=== PATIENT | female | born 1950 | race African-American/Black ===

== ENCOUNTER 2018-07-14 15:52 | Inpatient (IN) | payer MEDICARE, MEDICAID ==
[~2018-07-14] VITALS: Ht 170.2 cm; Wt 75.8 kg
[~2018-07-14 15:52] MED LIST: BENZ1TAB70 PO; CLON.5 PO; DIPH50 PO; ESCI20TA PO; LURA40 PO
[2018-07-14 18:03] LABS: BASOPHILS % (AUTO) 1.2 % (0.0-2.0); EOSINOPHILS % (AUTO) 1.7 % (1.0-6.0); HEMATOCRIT 41.2 % (36-46); HEMOGLOBIN 13.7 g/dL (12.0-16.0); LYMPHOCYTES # (AUTO) 1.3 K/uL (1.0-4.8); LYMPHOCYTES % (AUTO) 28.8 % (22.0-44.0); MEAN CORPUSCULAR HEMOGLOBIN 32.4 pg (26.0-34.0); MEAN CORPUSCULAR HGB CONC 33.4 G/dL (31.0-37.0); MEAN CORPUSCULAR VOLUME 97 fL (80-100); MONOCYTES # (AUTO) 0.5 K/uL (0.1-1.0); MONOCYTES % (AUTO) 10.7 % (2.0-9.0); NEUTROPHILS # (AUTO) 2.5 K/uL (1.8-7.7); NEUTROPHILS % (AUTO) 57.6 % (40.0-70.0); PLATELET COUNT (AUTO) 236 K/uL (150-450); RED BLOOD CELL COUNT(AUTO) 4.24 MIL/uL (4.00-5.20); RED CELL DISTRIBUTION WIDTH 13.8 % (11.5-14.5)
[2018-07-14 18:16] LABS: ANION GAP 7 mmol/L (8-16); CALCIUM, TOTAL 9.1 mg/dL (8.8-10.5); CARBON DIOXIDE 28 mmol/L (22-29); CHLORIDE 103 mmol/L (98-107); CREATININE 0.84 mg/dL (0.60-1.30); GLOMERULAR FILTR. RATE CALC > 60 mL/min (>60); GLUCOSE,RANDOM 82 mg/dL (70-110); POTASSIUM 4.5 mmol/L (3.5-5.1); SODIUM SERUM 138 mmol/L (136-145); UREA NITROGEN, BLOOD 12 mg/dL (7-18)
[2018-07-14 18:22] LABS: ALANINE AMINOTRANSFERASE 16 U/L (12-78); ALBUMIN 3.4 g/dL (3.4-5.0); ALKALINE PHOSPHATASE 66 U/L (46-116); ASPARTATE AMINOTRANSFERASE 22 U/L (15-37); BILIRUBIN,TOTAL 0.3 mg/dL (0.1-1.0); TOTAL PROTEIN, SERUM 7.3 g/dL (6.4-8.2)
[2018-07-14 19:10] LABS: AMPHET/METH SCREEN,URINE NEGATIVE (NEGATIVE); BARBITURATE SCREEN, URINE NEGATIVE (NEGATIVE); BENZODIAZEPINES SCREEN,URINE NEGATIVE (NEGATIVE); CANNABINOID SCREEN,URINE NEGATIVE (NEGATIVE); COCAINE SCREEN,URINE NEGATIVE (NEGATIVE); METHADONE SCREEN, URINE NEGATIVE (NEGATIVE); OPIATE SCREEN,URINE NEGATIVE (NEGATIVE)
[2018-07-14 19:11] LABS: PHENCYCLIDINE SCREEN,URINE NEGATIVE (NEGATIVE)
[2018-07-14] MEDS ORDERED: IBUP-2070 PO (19:23)
[2018-07-14] MEDS ORDERED: MIRT15 PO (19:23)
[2018-07-14] MEDS ORDERED: OLAN5TAB2 PO (19:23)
[2018-07-14] MEDS ORDERED: OMEP20 PO (19:23)
[2018-07-14] MEDS ORDERED: FLUP10 PO (19:23)
[2018-07-14] MEDS: MIRTAZAPINE 30 MG TABLET PO ONE ×2 (20:12→20:58)
[2018-07-15 00:22] VITALS: BP 135/70
[2018-07-15] MEDS: LORazepam 2 MG TABLET PO PRN (00:53)
[2018-07-15] MEDS ORDERED: ALBUTEROL SULFATE HFA 90 MCG/PUFF 8 GM INHALER IH PRN (07:30)
[2018-07-15] MEDS ORDERED: ACETAMINOPHEN 325 MG TABLET PO PRN (07:30)
[2018-07-15] MEDS ORDERED: PETROLATUM,WHITE 71 GM JELLY TP PRN (07:30)
[2018-07-15] MEDS ORDERED: GuaiFENesin/D-METHORPHAN [SUGAR-FREE] 200-20MG/10 ML SYRUP UDCUP PO PRN (07:30)
[2018-07-15] MEDS ORDERED: DOCUSATE SODIUM 100 MG CAPSULE PO PRN (07:30)
[2018-07-15] MEDS ORDERED: CloNIDine HCL 0.1 MG TABLET PO PRN (07:30)
[2018-07-15] MEDS ORDERED: ONDANSETRON HCL 4 MG TABLET PO PRN (07:30)
[2018-07-15] MEDS ORDERED: NICOTINE 14 MG/24 HOUR PATCH TD PRN (07:30)
[2018-07-15] MEDS ORDERED: IBUPROFEN 400 MG TABLET PO PRN (07:30)
[2018-07-15] MEDS ORDERED: LOPERAMIDE HCL 2 MG CAPSULE PO PRN (07:30)
[2018-07-15 08:14] VITALS: BP 107/76
[2018-07-15] MEDS: FluPHENAZine HCL 5 MG TABLET PO SCH ×2 (10:13→20:51)
[2018-07-15 19:07] VITALS: BP 110/70
[2018-07-15] MEDS: MIRTAZAPINE 15 MG TABLET PO SCH (20:52)
[2018-07-16 07:16] VITALS: BP 123/72
[2018-07-16] MEDS: OMEPRAZOLE 20 MG CAPSULE PO SCH (09:16)
[2018-07-16] MEDS: FluPHENAZine HCL 5 MG TABLET PO SCH ×2 (09:16→20:26)
[2018-07-16 09:24] VITALS: BP 101/60
[2018-07-16 18:57] VITALS: BP 117/79
[2018-07-16] MEDS: MIRTAZAPINE 15 MG TABLET PO SCH (20:26)
[2018-07-16] MEDS: LORazepam 2 MG TABLET PO PRN (20:31)
[2018-07-17 06:30] VITALS: BP 110/72
[2018-07-17] MEDS: OMEPRAZOLE 20 MG CAPSULE PO SCH (09:03)
[2018-07-17] MEDS: FluPHENAZine HCL 5 MG TABLET PO SCH ×2 (09:04→20:34)
[2018-07-17 16:00] VITALS: BP 148/66
[2018-07-17] MEDS: MIRTAZAPINE 15 MG TABLET PO SCH (20:35)
[2018-07-17 21:01] VITALS: BP 140/68
[2018-07-17] MEDS: ZOLPIDEM TARTRATE 10 MG TABLET PO PRN (21:09)
[2018-07-18 06:37] VITALS: BP 107/61
[2018-07-18] MEDS: OMEPRAZOLE 20 MG CAPSULE PO SCH (09:00)
[2018-07-18] MEDS: FluPHENAZine HCL 5 MG TABLET PO SCH ×2 (09:02→20:59)
[2018-07-18 16:55] VITALS: BP 120/69
[2018-07-18] MEDS: MIRTAZAPINE 15 MG TABLET PO SCH (20:59)
[2018-07-18] MEDS: ZOLPIDEM TARTRATE 10 MG TABLET PO PRN (20:59)
[2018-07-19 04:43] VITALS: BP 110/69
[2018-07-19] MEDS: OMEPRAZOLE 20 MG CAPSULE PO SCH (09:00)
[2018-07-19] MEDS: FluPHENAZine HCL 5 MG TABLET PO SCH ×3 (09:15→17:00)
[2018-07-19 17:14] VITALS: BP 122/65
[2018-07-19] MEDS: MIRTAZAPINE 15 MG TABLET PO SCH (20:56)
[2018-07-19] MEDS: ZOLPIDEM TARTRATE 10 MG TABLET PO PRN (20:56)
[2018-07-20 05:55] VITALS: BP 118/78
[2018-07-20 08:00] VITALS: BP 116/74
[2018-07-20] MEDS: OMEPRAZOLE 20 MG CAPSULE PO SCH (08:36)
[2018-07-20] MEDS: FluPHENAZine HCL 5 MG TABLET PO SCH (08:36)
[2018-07-20 08:44] LABS: BASOPHILS % (AUTO) 0.7 % (0.0-2.0); HEMOGLOBIN 13.5 g/dL (12.0-16.0); LYMPHOCYTES # (AUTO) 1.8 K/uL (1.0-4.8); LYMPHOCYTES % (AUTO) 43.1 % (22.0-44.0); MEAN CORPUSCULAR HEMOGLOBIN 32.6 pg (26.0-34.0); MEAN CORPUSCULAR HGB CONC 33.8 G/dL (31.0-37.0); MEAN CORPUSCULAR VOLUME 96 fL (80-100); MONOCYTES # (AUTO) 0.6 K/uL (0.1-1.0); MONOCYTES % (AUTO) 13.5 % (2.0-9.0); NEUTROPHILS # (AUTO) 1.6 K/uL (1.8-7.7); NEUTROPHILS % (AUTO) 37.7 % (40.0-70.0); PLATELET COUNT (AUTO) 238 K/uL (150-450); RED BLOOD CELL COUNT(AUTO) 4.15 MIL/uL (4.00-5.20); RED CELL DISTRIBUTION WIDTH 13.7 % (11.5-14.5)
[2018-07-20 17:22] VITALS: BP 116/76
[2018-07-20] MEDS ORDERED: QUEtiapine FUMARATE 200 MG TABLET PO SCH (21:00)
[2018-07-20] MEDS: MIRTAZAPINE 15 MG TABLET PO SCH (21:10)
[2018-07-20] MEDS: ZOLPIDEM TARTRATE 10 MG TABLET PO PRN (21:22)
[2018-07-21 08:01] VITALS: BP 122/59
[2018-07-21 08:04] VITALS: BP 122/59
[2018-07-21] MEDS: HALOPERIDOL 5 MG TABLET PO PRN (10:26)
[2018-07-21] MEDS: LORazepam 2 MG TABLET PO PRN (10:26)
[2018-07-21] MEDS: OLANZapine 5 MG TABLET PO SCH ×2 (10:45→20:10)
[2018-07-21] MEDS ORDERED: FLUP5 PO (10:51)
[2018-07-21 17:41] VITALS: BP 109/51
[2018-07-21] MEDS: MIRTAZAPINE 15 MG TABLET PO SCH (20:10)
[2018-07-21 22:52] VITALS: BP 131/76
[2018-07-21] MEDS: ZOLPIDEM TARTRATE 10 MG TABLET PO PRN (22:53)
[2018-07-22 05:19] VITALS: BP 126/76
[2018-07-22 08:40] VITALS: BP 120/81
[2018-07-22] MEDS: OLANZapine 5 MG TABLET PO SCH ×2 (08:42→20:07)
[2018-07-22 16:26] VITALS: BP 147/80
[2018-07-22] MEDS: MIRTAZAPINE 15 MG TABLET PO SCH (20:07)
[2018-07-22] MEDS: ZOLPIDEM TARTRATE 10 MG TABLET PO PRN (21:04)
[2018-07-23 05:58] VITALS: BP 124/78
[2018-07-23 08:28] VITALS: BP 115/74
[2018-07-23] MEDS: OLANZapine 5 MG TABLET PO SCH ×2 (08:59→21:00)
[2018-07-23 17:35] VITALS: BP 126/62
[2018-07-23] MEDS: MIRTAZAPINE 15 MG TABLET PO SCH (21:00)
[2018-07-23] MEDS: ZOLPIDEM TARTRATE 10 MG TABLET PO PRN (21:52)
[2018-07-24 01:58] VITALS: BP 118/82
[2018-07-24 08:00] VITALS: BP 129/78
[2018-07-24] MEDS: OLANZapine 5 MG TABLET PO SCH ×2 (09:00→20:13)
[2018-07-24 16:34] VITALS: BP 130/70
[2018-07-24] MEDS: MIRTAZAPINE 15 MG TABLET PO SCH (20:13)
[2018-07-24] MEDS: ZOLPIDEM TARTRATE 10 MG TABLET PO PRN (20:22)
[2018-07-25 06:14] VITALS: BP 124/78
[2018-07-25] MEDS: OLANZapine 5 MG TABLET PO SCH ×2 (09:00→21:00)
[2018-07-25 09:15] VITALS: BP 103/65
[2018-07-25 16:38] VITALS: BP 125/70
[2018-07-25] MEDS: MIRTAZAPINE 15 MG TABLET PO SCH (21:28)
[2018-07-25] MEDS: ZOLPIDEM TARTRATE 10 MG TABLET PO PRN (21:28)
[2018-07-26 08:27] VITALS: BP 105/69
[2018-07-26] MEDS: OLANZapine 5 MG TABLET PO SCH ×2 (09:00→20:40)
[2018-07-26 16:13] VITALS: BP 106/63
[2018-07-26] MEDS: MIRTAZAPINE 15 MG TABLET PO SCH (20:39)
[2018-07-26] MEDS: ZOLPIDEM TARTRATE 10 MG TABLET PO PRN (20:39)
[2018-07-27 05:21] VITALS: BP 118/68
[2018-07-27 08:20] VITALS: BP 113/75
[2018-07-27] MEDS: OLANZapine 5 MG TABLET PO SCH (09:00)
[2018-07-27] MEDS: FOLIC ACID 1 MG TABLET PO SCH (09:11)
[2018-07-27] MEDS ORDERED: LORazepam 2 MG/ML VIAL ONE (13:06)
[2018-07-27] MEDS ORDERED: DiphenhydrAMINE HCL 50 MG/ML VIAL ONE (13:06)
[2018-07-27] MEDS ORDERED: HALOPERIDOL LACTATE 5 MG/ML VIAL ONE (13:06)
[2018-07-27] MEDS ORDERED: LORazepam 2 MG/ML VIAL IM ONE (13:15)
[2018-07-27] MEDS ORDERED: HALOPERIDOL LACTATE 5 MG/ML VIAL IM ONE (13:15)
[2018-07-27] MEDS ORDERED: DiphenhydrAMINE HCL 50 MG/ML VIAL IM ONE (13:15)
[2018-07-27 13:50] VITALS: BP 122/67
[2018-07-27 16:57] VITALS: BP 111/60
[2018-07-27] MEDS: MIRTAZAPINE 15 MG TABLET PO SCH (20:56)
[2018-07-27] MEDS ORDERED: QUEtiapine FUMARATE 25 MG TABLET PO SCH (21:00)
[2018-07-28 05:16] VITALS: BP 114/68
[2018-07-28 08:15] VITALS: BP 109/72
[2018-07-28] MEDS: FOLIC ACID 1 MG TABLET PO SCH (08:58)
[2018-07-28] MEDS: QUEtiapine FUMARATE 100 MG TABLET PO SCH ×3 (10:59→20:53)
[2018-07-28] MEDS ORDERED: HALOPERIDOL LACTATE 5 MG/ML VIAL IM PRN (11:15)
[2018-07-28 16:11] VITALS: BP 125/64
[2018-07-28] MEDS: MIRTAZAPINE 15 MG TABLET PO SCH (20:53)
[2018-07-28] MEDS: ZOLPIDEM TARTRATE 10 MG TABLET PO PRN (21:34)
[2018-07-29 08:32] VITALS: BP 140/76
[2018-07-29] MEDS: QUEtiapine FUMARATE 100 MG TABLET PO SCH ×3 (08:38→20:04)
[2018-07-29] MEDS: FOLIC ACID 1 MG TABLET PO SCH (08:38)
[2018-07-29] MEDS: HALOPERIDOL 5 MG TABLET PO PRN (08:38)
[2018-07-29 16:19] VITALS: BP 131/71
[2018-07-29] MEDS: ZOLPIDEM TARTRATE 10 MG TABLET PO PRN (20:33)
[2018-07-29] MEDS: MIRTAZAPINE 15 MG TABLET PO SCH (20:35)
[2018-07-30] MEDS: LORazepam 2 MG TABLET PO PRN (00:13)
[2018-07-30] MEDS: MAGNESIUM HYDROXIDE SUSPENSION 30 ML UDCUP PO PRN (00:13)
[2018-07-30 00:58] VITALS: BP 135/74
[2018-07-30 08:35] VITALS: BP 133/79
[2018-07-30] MEDS: FOLIC ACID 1 MG TABLET PO SCH (08:52)
[2018-07-30] MEDS: QUEtiapine FUMARATE 100 MG TABLET PO SCH ×3 (08:52→21:28)
[2018-07-30 17:24] VITALS: BP 129/65
[2018-07-30] MEDS: MIRTAZAPINE 15 MG TABLET PO SCH (21:28)
[2018-07-30] MEDS: ZOLPIDEM TARTRATE 10 MG TABLET PO PRN (22:00)
[2018-07-31 04:28] VITALS: BP 130/77
[2018-07-31 08:10] VITALS: BP 114/77
[2018-07-31] MEDS: QUEtiapine FUMARATE 100 MG TABLET PO SCH ×3 (08:21→21:50)
[2018-07-31] MEDS: LORazepam 2 MG TABLET PO PRN (08:21)
[2018-07-31] MEDS: FOLIC ACID 1 MG TABLET PO SCH (08:22)
[2018-07-31 16:36] VITALS: BP 117/64
[2018-07-31] MEDS: MIRTAZAPINE 15 MG TABLET PO SCH (21:50)
[2018-07-31] MEDS: ZOLPIDEM TARTRATE 10 MG TABLET PO PRN (22:00)
[2018-08-01 04:24] VITALS: BP 123/78
[2018-08-01] MEDS: FOLIC ACID 1 MG TABLET PO SCH (08:28)
[2018-08-01] MEDS: QUEtiapine FUMARATE 100 MG TABLET PO SCH ×3 (08:28→21:35)
[2018-08-01 08:57] VITALS: BP 111/62
[2018-08-01 16:07] VITALS: BP 131/71
[2018-08-01] MEDS: MAG HYDROX/AL HYDROX/SIMETH ES 30 ML SUSPENSION UDCUP PO PRN (18:46)
[2018-08-01] MEDS: MIRTAZAPINE 15 MG TABLET PO SCH (21:35)
[2018-08-01] MEDS: ZOLPIDEM TARTRATE 10 MG TABLET PO PRN (21:35)
[2018-08-02] MEDS: FOLIC ACID 1 MG TABLET PO SCH (08:17)
[2018-08-02] MEDS: QUEtiapine FUMARATE 100 MG TABLET PO SCH ×3 (08:17→21:00)
[2018-08-02 09:30] VITALS: BP 118/91
[2018-08-02 16:11] VITALS: BP 118/75
[2018-08-02] MEDS: MIRTAZAPINE 15 MG TABLET PO SCH (21:00)
[2018-08-02] MEDS: LORazepam 2 MG TABLET PO PRN (21:37)
[2018-08-02] MEDS: ZOLPIDEM TARTRATE 10 MG TABLET PO PRN (21:37)
[2018-08-03 06:56] VITALS: BP 111/65
[2018-08-03 08:12] VITALS: BP 126/78
[2018-08-03 08:28] LABS: EOSINOPHILS % (AUTO) 4.3 % (1.0-6.0); HEMATOCRIT 36.8 % (36-46); HEMOGLOBIN 12.4 g/dL (12.0-16.0); LYMPHOCYTES # (AUTO) 1.1 K/uL (1.0-4.8); LYMPHOCYTES % (AUTO) 30.5 % (22.0-44.0); MEAN CORPUSCULAR HEMOGLOBIN 32.2 pg (26.0-34.0); MEAN CORPUSCULAR HGB CONC 33.8 G/dL (31.0-37.0); MEAN CORPUSCULAR VOLUME 95 fL (80-100); MONOCYTES # (AUTO) 0.5 K/uL (0.1-1.0); MONOCYTES % (AUTO) 14.7 % (2.0-9.0); NEUTROPHILS # (AUTO) 1.7 K/uL (1.8-7.7); NEUTROPHILS % (AUTO) 49.5 % (40.0-70.0); PLATELET COUNT (AUTO) 189 K/uL (150-450); RED BLOOD CELL COUNT(AUTO) 3.86 MIL/uL (4.00-5.20); RED CELL DISTRIBUTION WIDTH 13.6 % (11.5-14.5)
[2018-08-03] MEDS: QUEtiapine FUMARATE 100 MG TABLET PO SCH ×3 (09:10→21:00)
[2018-08-03] MEDS: FOLIC ACID 1 MG TABLET PO SCH (09:11)
[2018-08-03] MEDS: MAG HYDROX/AL HYDROX/SIMETH ES 30 ML SUSPENSION UDCUP PO PRN (09:44)
[2018-08-03 16:54] VITALS: BP 109/62
[2018-08-03] MEDS: MIRTAZAPINE 15 MG TABLET PO SCH (21:00)
[2018-08-03] MEDS: ZOLPIDEM TARTRATE 10 MG TABLET PO PRN (21:37)
[2018-08-03] MEDS: LORazepam 2 MG TABLET PO PRN (21:37)
[2018-08-04 06:05] VITALS: BP 118/89
[2018-08-04 08:16] VITALS: BP 112/65
[2018-08-04] MEDS: FOLIC ACID 1 MG TABLET PO SCH (09:00)
[2018-08-04] MEDS: QUEtiapine FUMARATE 100 MG TABLET PO SCH ×3 (09:39→21:15)
[2018-08-04 16:18] VITALS: BP 130/75
[2018-08-04] MEDS: MIRTAZAPINE 15 MG TABLET PO SCH (21:00)
[2018-08-04] MEDS: ZOLPIDEM TARTRATE 10 MG TABLET PO PRN (21:15)
[2018-08-05 07:08] VITALS: BP 125/70
[2018-08-05 08:35] VITALS: BP 100/60
[2018-08-05] MEDS: QUEtiapine FUMARATE 100 MG TABLET PO SCH ×3 (08:54→20:32)
[2018-08-05] MEDS: FOLIC ACID 1 MG TABLET PO SCH (08:54)
[2018-08-05 16:11] VITALS: BP 119/72
[2018-08-05] MEDS: LORazepam 2 MG TABLET PO PRN (17:47)
[2018-08-05] MEDS: ZOLPIDEM TARTRATE 10 MG TABLET PO PRN (20:32)
[2018-08-05] MEDS: MIRTAZAPINE 15 MG TABLET PO SCH (20:32)
[2018-08-06 06:44] VITALS: BP 117/75
[2018-08-06 08:12] VITALS: BP 140/78
[2018-08-06] MEDS: QUEtiapine FUMARATE 100 MG TABLET PO SCH ×3 (08:56→21:59)
[2018-08-06] MEDS: FOLIC ACID 1 MG TABLET PO SCH (08:56)
[2018-08-06] MEDS: MAG HYDROX/AL HYDROX/SIMETH ES 30 ML SUSPENSION UDCUP PO PRN (09:52)
[2018-08-06 16:06] VITALS: BP 113/74
[2018-08-06] MEDS: ZOLPIDEM TARTRATE 10 MG TABLET PO PRN (21:59)
[2018-08-06] MEDS: MIRTAZAPINE 15 MG TABLET PO SCH (21:59)
[2018-08-07 08:18] VITALS: BP 119/69
[2018-08-07] MEDS: FOLIC ACID 1 MG TABLET PO SCH (08:29)
[2018-08-07] MEDS: QUEtiapine FUMARATE 100 MG TABLET PO SCH ×3 (08:29→21:18)
[2018-08-07 16:17] VITALS: BP 136/75
[2018-08-07] MEDS: MIRTAZAPINE 15 MG TABLET PO SCH (21:00)
[2018-08-07] MEDS: ZOLPIDEM TARTRATE 10 MG TABLET PO PRN (21:17)
[2018-08-07] MEDS: LORazepam 2 MG TABLET PO PRN (22:56)
[2018-08-08] MEDS: MAG HYDROX/AL HYDROX/SIMETH ES 30 ML SUSPENSION UDCUP PO PRN (00:54)
[2018-08-08 08:17] VITALS: BP 122/71
[2018-08-08] MEDS: FOLIC ACID 1 MG TABLET PO SCH (08:58)
[2018-08-08] MEDS: QUEtiapine FUMARATE 100 MG TABLET PO SCH ×3 (08:58→20:53)
[2018-08-08 16:09] VITALS: BP 123/82
[2018-08-08] MEDS: ZOLPIDEM TARTRATE 10 MG TABLET PO PRN (20:53)
[2018-08-08] MEDS: MIRTAZAPINE 15 MG TABLET PO SCH (21:00)
[2018-08-08] MEDS: LORazepam 2 MG TABLET PO PRN (22:38)
[2018-08-09] MEDS: QUEtiapine FUMARATE 100 MG TABLET PO SCH ×3 (08:38→20:42)
[2018-08-09] MEDS: FOLIC ACID 1 MG TABLET PO SCH (08:38)
[2018-08-09 08:39] VITALS: BP 135/72
[2018-08-09] MEDS: MAG HYDROX/AL HYDROX/SIMETH ES 30 ML SUSPENSION UDCUP PO PRN (12:08)
[2018-08-09] MEDS: DIVALPROEX SODIUM 500 MG DR TABLET PO SCH ×2 (12:30→20:42)
[2018-08-09] MEDS: MAGNESIUM HYDROXIDE SUSPENSION 30 ML UDCUP PO PRN (13:53)
[2018-08-09 16:00] VITALS: BP 109/61
[2018-08-09] MEDS: LORazepam 2 MG TABLET PO PRN (20:41)
[2018-08-09] MEDS: MIRTAZAPINE 15 MG TABLET PO SCH (20:42)
[2018-08-09] MEDS: ZOLPIDEM TARTRATE 10 MG TABLET PO PRN (21:19)
[2018-08-10 01:29] VITALS: BP 128/72
[2018-08-10 08:23] VITALS: BP 124/84
[2018-08-10] MEDS: DIVALPROEX SODIUM 500 MG DR TABLET PO SCH ×2 (08:30→21:02)
[2018-08-10] MEDS: FOLIC ACID 1 MG TABLET PO SCH (08:30)
[2018-08-10] MEDS: QUEtiapine FUMARATE 100 MG TABLET PO SCH ×3 (08:30→21:00)
[2018-08-10] MEDS: MAGNESIUM HYDROXIDE SUSPENSION 30 ML UDCUP PO PRN (09:03)
[2018-08-10 16:21] VITALS: BP 110/71
[2018-08-10] MEDS: MIRTAZAPINE 15 MG TABLET PO SCH (21:00)
[2018-08-10] MEDS: LORazepam 2 MG TABLET PO PRN (21:02)
[2018-08-10] MEDS: ZOLPIDEM TARTRATE 10 MG TABLET PO PRN (21:02)
[2018-08-11 06:30] VITALS: BP 115/70
[2018-08-11 08:11] VITALS: BP 132/80
[2018-08-11] MEDS: DIVALPROEX SODIUM 500 MG DR TABLET PO SCH ×2 (08:47→21:18)
[2018-08-11] MEDS: QUEtiapine FUMARATE 100 MG TABLET PO SCH ×3 (08:47→21:00)
[2018-08-11] MEDS: FOLIC ACID 1 MG TABLET PO SCH (08:47)
[2018-08-11 16:06] VITALS: BP 123/71
[2018-08-11] MEDS: MIRTAZAPINE 15 MG TABLET PO SCH (21:00)
[2018-08-11] MEDS: LORazepam 2 MG TABLET PO PRN (21:18)
[2018-08-12 06:44] VITALS: BP 122/72
[2018-08-12 08:12] VITALS: BP 127/71
[2018-08-12] MEDS: QUEtiapine FUMARATE 100 MG TABLET PO SCH ×3 (08:45→21:00)
[2018-08-12] MEDS: FOLIC ACID 1 MG TABLET PO SCH (08:45)
[2018-08-12] MEDS: DIVALPROEX SODIUM 500 MG DR TABLET PO SCH ×2 (08:45→21:00)
[2018-08-12] MEDS: LORazepam 2 MG TABLET PO PRN (08:45)
[2018-08-12 16:09] VITALS: BP 111/64
[2018-08-12] MEDS: MIRTAZAPINE 15 MG TABLET PO SCH (21:00)
[2018-08-12] MEDS: ZOLPIDEM TARTRATE 10 MG TABLET PO PRN (21:38)
[2018-08-13 07:27] VITALS: BP 110/72
[2018-08-13] MEDS: QUEtiapine FUMARATE 100 MG TABLET PO SCH ×3 (08:36→20:23)
[2018-08-13] MEDS: FOLIC ACID 1 MG TABLET PO SCH (08:36)
[2018-08-13] MEDS: DIVALPROEX SODIUM 500 MG DR TABLET PO SCH ×2 (08:36→20:21)
[2018-08-13 09:24] VITALS: BP 125/70
[2018-08-13 19:02] VITALS: BP 128/70
[2018-08-13] MEDS: MIRTAZAPINE 15 MG TABLET PO SCH (20:23)
[2018-08-13] MEDS: LORazepam 2 MG TABLET PO PRN (20:36)
[2018-08-14 07:11] VITALS: BP 130/72
[2018-08-14] MEDS: QUEtiapine FUMARATE 100 MG TABLET PO SCH ×3 (08:48→20:52)
[2018-08-14] MEDS: DIVALPROEX SODIUM 500 MG DR TABLET PO SCH ×2 (08:48→20:52)
[2018-08-14] MEDS: FOLIC ACID 1 MG TABLET PO SCH (08:48)
[2018-08-14 12:42] VITALS: BP 138/74
[2018-08-14 16:12] VITALS: BP 130/80
[2018-08-14] MEDS: MIRTAZAPINE 15 MG TABLET PO SCH (20:52)
[2018-08-14] MEDS: TraZODone HCL 50 MG TABLET PO SCH (20:52)
[2018-08-15 00:20] VITALS: BP 138/76
[2018-08-15] MEDS: ZOLPIDEM TARTRATE 10 MG TABLET PO PRN ×2 (00:24→21:05)
[2018-08-15 08:13] VITALS: BP 102/65
[2018-08-15] MEDS: QUEtiapine FUMARATE 100 MG TABLET PO SCH ×3 (08:59→20:25)
[2018-08-15] MEDS: DIVALPROEX SODIUM 500 MG DR TABLET PO SCH ×2 (08:59→20:18)
[2018-08-15] MEDS: FOLIC ACID 1 MG TABLET PO SCH (08:59)
[2018-08-15 16:00] VITALS: BP 115/70
[2018-08-15] MEDS: TraZODone HCL 50 MG TABLET PO SCH (20:24)
[2018-08-15] MEDS: MIRTAZAPINE 15 MG TABLET PO SCH (20:25)
[2018-08-16 05:44] VITALS: BP 120/71
[2018-08-16 08:09] VITALS: BP 108/64
[2018-08-16] MEDS: FOLIC ACID 1 MG TABLET PO SCH (09:00)
[2018-08-16] MEDS: QUEtiapine FUMARATE 100 MG TABLET PO SCH ×2 (09:00→17:00)
[2018-08-16] MEDS: DIVALPROEX SODIUM 500 MG DR TABLET PO SCH (09:11)
[2018-08-16] MEDS ORDERED: DIVA-78 PO ×2 (12:21→15:06)
[2018-08-16 16:30] VITALS: BP 126/75
[2018-08-16] MEDS: MAG HYDROX/AL HYDROX/SIMETH ES 30 ML SUSPENSION UDCUP PO PRN (17:18)
== END 2018-08-16 19:30 | disposition home or self-care (01) | DRG 750 ==
LOC: EMS 15:53 → B3A 21:30
DX: F25.0 Schizoaffective disorder, bipolar type (principal); Z91.14 Patient's other noncompliance with medication regimen; D72.819 Decreased white blood cell count, unspecified; K21.9 Gastro-esophageal reflux disease without esophagitis; M10.9 Gout, unspecified; M19.90 Unspecified osteoarthritis, unspecified site; R45.87 Impulsiveness; Z88.0 Allergy status to penicillin; Z79.899 Other long term (current) drug therapy; Z91.19 Patient's noncompliance with other medical treatment and regimen
CPT/HCPCS: 87081; G0480; J1200; J1630; J2060

== ENCOUNTER 2018-11-03 23:17 | Emergency (ER) | payer MEDICARE, OTHER ==
[~2018-11-03] VITALS: Ht 170.2 cm; Wt 63.6 kg
[~2018-11-03 23:17] MED LIST changes: -BENZ1TAB70 PO; -CLON.5 PO; -DIPH50 PO; +DIVA-78 PO; -ESCI20TA PO; -LURA40 PO
[2018-11-04 00:20] LABS: BASOPHILS % (AUTO) 1.2 % (0.0-2.0); EOSINOPHILS % (AUTO) 2.2 % (1.0-6.0); HEMATOCRIT 39.6 % (36-46); HEMOGLOBIN 13.1 g/dL (12.0-16.0); LYMPHOCYTES # (AUTO) 1.5 K/uL (1.0-4.8); LYMPHOCYTES % (AUTO) 41.7 % (22.0-44.0); MEAN CORPUSCULAR VOLUME 97 fL (80-100); MONOCYTES # (AUTO) 0.4 K/uL (0.1-1.0); MONOCYTES % (AUTO) 11.4 % (2.0-9.0); NEUTROPHILS # (AUTO) 1.6 K/uL (1.8-7.7); NEUTROPHILS % (AUTO) 43.5 % (40.0-70.0); PLATELET COUNT (AUTO) 177 K/uL (150-450); RED BLOOD CELL COUNT(AUTO) 4.09 MIL/uL (4.00-5.20); RED CELL DISTRIBUTION WIDTH 13.8 % (11.5-14.5)
[2018-11-04 00:28] LABS: ANION GAP 10 mmol/L (8-16); CARBON DIOXIDE 27 mmol/L (22-29); CHLORIDE 107 mmol/L (98-107); CREATININE 0.89 mg/dL (0.60-1.30); GLOMERULAR FILTR. RATE CALC > 60 mL/min (>60); GLUCOSE,RANDOM 90 mg/dL (70-110); SODIUM SERUM 144 mmol/L (136-145); UREA NITROGEN, BLOOD 12 mg/dL (7-18)
[2018-11-04 00:34] LABS: ALANINE AMINOTRANSFERASE 9 U/L (12-78); ALBUMIN 3.5 g/dL (3.4-5.0); ALKALINE PHOSPHATASE 64 U/L (46-116); ASPARTATE AMINOTRANSFERASE 18 U/L (15-37); BILIRUBIN,TOTAL 0.2 mg/dL (0.1-1.0); TOTAL PROTEIN, SERUM 7.1 g/dL (6.4-8.2); VALPROIC ACID 34 mcg/mL (50-100)
[2018-11-04 02:57] LABS: APPEARANCE,URINE CLOUDY (CLEAR); BILIRUBIN,URINE NEGATIVE (NEGATIVE); GLUCOSE, URINE (UA) NEGATIVE (NEGATIVE); KETONES,URINE NEGATIVE (NEGATIVE); LEUKOCYTE ESTERASE ,URINE MODERATE (NEGATIVE); NITRATE,URINE NEGATIVE (NEGATIVE); OCCULT BLOOD,URINE SMALL (NEGATIVE); PROTEIN,URINE NEGATIVE (NEGATIVE)
[2018-11-04 03:02] LABS: AMPHET/METH SCREEN,URINE NEGATIVE (NEGATIVE); BARBITURATE SCREEN, URINE NEGATIVE (NEGATIVE); BENZODIAZEPINES SCREEN,URINE NEGATIVE (NEGATIVE); CANNABINOID SCREEN,URINE NEGATIVE (NEGATIVE); COCAINE SCREEN,URINE NEGATIVE (NEGATIVE); METHADONE SCREEN, URINE NEGATIVE (NEGATIVE); OPIATE SCREEN,URINE NEGATIVE (NEGATIVE); PHENCYCLIDINE SCREEN,URINE NEGATIVE (NEGATIVE)
[2018-11-04 03:08] LABS: BACTERIA,URINE Rare /HPF (None Seen); SQUAMOUS EPITHELIAL CELL,UR Few /LPF (None Seen)
[2018-11-04 03:21] VITALS: BP 120/64
[2018-11-04] MEDS ORDERED: SULFAMETHOX/TRIMETH DS 800-160 MG/TABLET PO ONE (03:30)
== END 2018-11-04 04:06 | disposition home or self-care (01) ==
LOC: EMS 23:17
DX: F31.9 Bipolar disorder, unspecified (principal); N39.0 Urinary tract infection, site not specified; F20.9 Schizophrenia, unspecified; M19.90 Unspecified osteoarthritis, unspecified site; Z88.0 Allergy status to penicillin; Z79.899 Other long term (current) drug therapy
CPT/HCPCS: 36415; 80053; 80164; 80307; 81001; 85025; 87086; 99283; G0480

== ENCOUNTER 2019-02-12 11:44 | Emergency (ER) | payer MEDICARE, OTHER ==
[~2019-02-12] VITALS: Ht 170.2 cm; Wt 69.5 kg
[2019-02-12 12:50] LABS: BASOPHILS % (AUTO) 1.4 % (0.0-2.0); EOSINOPHILS % (AUTO) 2.3 % (1.0-6.0); HEMATOCRIT 39.5 % (36-46); HEMOGLOBIN 13.1 g/dL (12.0-16.0); LYMPHOCYTES # (AUTO) 1.5 K/uL (1.0-4.8); LYMPHOCYTES % (AUTO) 45.6 % (22.0-44.0); MEAN CORPUSCULAR HEMOGLOBIN 32.9 pg (26.0-34.0); MEAN CORPUSCULAR HGB CONC 33.1 G/dL (31.0-37.0); MEAN CORPUSCULAR VOLUME 99 fL (80-100); MONOCYTES # (AUTO) 0.5 K/uL (0.1-1.0); MONOCYTES % (AUTO) 14.9 % (2.0-9.0); NEUTROPHILS # (AUTO) 1.2 K/uL (1.8-7.7); NEUTROPHILS % (AUTO) 35.8 % (40.0-70.0); PLATELET COUNT (AUTO) 184 K/uL (150-450); RED BLOOD CELL COUNT(AUTO) 3.98 MIL/uL (4.00-5.20); RED CELL DISTRIBUTION WIDTH 13.8 % (11.5-14.5)
[2019-02-12 13:02] LABS: ANION GAP 6 mmol/L (8-16); CALCIUM, TOTAL 9.6 mg/dL (8.8-10.5); CARBON DIOXIDE 28 mmol/L (22-29); CHLORIDE 102 mmol/L (98-107); CREATININE 1.12 mg/dL (0.60-1.30); GLOMERULAR FILTR. RATE CALC 58 mL/min (>60); GLUCOSE,RANDOM 90 mg/dL (70-110); SODIUM SERUM 136 mmol/L (136-145); UREA NITROGEN, BLOOD 23 mg/dL (7-18)
[2019-02-12 13:08] LABS: ALANINE AMINOTRANSFERASE 11 U/L (12-78); ALBUMIN 3.9 g/dL (3.4-5.0); ALKALINE PHOSPHATASE 52 U/L (46-116); ASPARTATE AMINOTRANSFERASE 18 U/L (15-37); BILIRUBIN,TOTAL 0.6 mg/dL (0.1-1.0); TOTAL PROTEIN, SERUM 7.1 g/dL (6.4-8.2)
[2019-02-12 14:30] VITALS: BP 118/81
[2019-02-12] MEDS ORDERED: LORazepam 1 MG TABLET PO ONE (14:45)
== END 2019-02-12 14:40 | disposition home or self-care (01) ==
LOC: EMS 11:44
DX: F41.9 Anxiety disorder, unspecified (principal); M19.90 Unspecified osteoarthritis, unspecified site; F17.210 Nicotine dependence, cigarettes, uncomplicated; F31.9 Bipolar disorder, unspecified; F20.9 Schizophrenia, unspecified; Z88.0 Allergy status to penicillin; Z79.899 Other long term (current) drug therapy
CPT/HCPCS: 36415; 71046; 80053; 85025; 99284; 99406; G0480

== ENCOUNTER 2019-02-15 02:21 | Emergency (ER) | payer MEDICARE, OTHER ==
[~2019-02-15] VITALS: Ht 170.2 cm; Wt 76.7 kg
[2019-02-15 03:14] LABS: BASOPHILS % (AUTO) 1.4 % (0.0-2.0); EOSINOPHILS % (AUTO) 3.1 % (1.0-6.0); LYMPHOCYTES # (AUTO) 1.4 K/uL (1.0-4.8); LYMPHOCYTES % (AUTO) 43.9 % (22.0-44.0); MEAN CORPUSCULAR HEMOGLOBIN 32.9 pg (26.0-34.0); MEAN CORPUSCULAR HGB CONC 33.2 G/dL (31.0-37.0); MEAN CORPUSCULAR VOLUME 99 fL (80-100); MONOCYTES # (AUTO) 0.5 K/uL (0.1-1.0); MONOCYTES % (AUTO) 16.4 % (2.0-9.0); NEUTROPHILS # (AUTO) 1.1 K/uL (1.8-7.7); NEUTROPHILS % (AUTO) 35.2 % (40.0-70.0); PLATELET COUNT (AUTO) 162 K/uL (150-450); RED BLOOD CELL COUNT(AUTO) 3.64 MIL/uL (4.00-5.20); RED CELL DISTRIBUTION WIDTH 13.9 % (11.5-14.5)
[2019-02-15] MEDS ORDERED: KETOROLAC TROMETHAMINE 30 MG/ML VIAL IVP ONE (03:15)
[2019-02-15 03:23] LABS: INR 1.1 (0.9-1.1); PROTHROMBIN TIME 11.3 SEC (9.4-11.6)
[2019-02-15 03:28] LABS: ANION GAP 4 mmol/L (8-16); CALCIUM, TOTAL 8.8 mg/dL (8.8-10.5); CARBON DIOXIDE 27 mmol/L (22-29); CHLORIDE 104 mmol/L (98-107); CREATININE 0.97 mg/dL (0.60-1.30); GLOMERULAR FILTR. RATE CALC > 60 mL/min (>60); GLUCOSE,RANDOM 131 mg/dL (70-110); POTASSIUM 4.2 mmol/L (3.5-5.1); SODIUM SERUM 135 mmol/L (136-145); UREA NITROGEN, BLOOD 19 mg/dL (7-18)
[2019-02-15 03:35] LABS: B-TYPE NATRIURETIC PEPTIDE 41 pg/mL (0-100)
[2019-02-15 03:48] LABS: THYROID STIMULATING HORMONE 1.93 uIU/mL (0.36-3.74)
[2019-02-15 03:52] LABS: ALANINE AMINOTRANSFERASE 7 U/L (12-78); ALBUMIN 3.5 g/dL (3.4-5.0); ALKALINE PHOSPHATASE 52 U/L (46-116); ASPARTATE AMINOTRANSFERASE 19 U/L (15-37); BILIRUBIN,TOTAL 0.4 mg/dL (0.1-1.0); CREATINE KINASE, TOTAL ONLY 290 U/L (26-192); TOTAL PROTEIN, SERUM 6.2 g/dL (6.4-8.2)
[2019-02-15 04:46] LABS: GLUCOSE,POINT OF CARE 94 MG/DL (70-110)
[2019-02-15 05:08] LABS: APPEARANCE,URINE CLEAR (CLEAR); BILIRUBIN,URINE NEGATIVE (NEGATIVE); GLUCOSE, URINE (UA) NEGATIVE (NEGATIVE); KETONES,URINE NEGATIVE (NEGATIVE); LEUKOCYTE ESTERASE ,URINE MODERATE (NEGATIVE); NITRATE,URINE NEGATIVE (NEGATIVE); OCCULT BLOOD,URINE TRACE (NEGATIVE); PH,URINE 5.5 (5.0-8.0); PROTEIN,URINE NEGATIVE (NEGATIVE); UROBILINOGEN,URINE 0.2 mg/dL (<=1.0)
[2019-02-15 05:14] LABS: BACTERIA,URINE None Seen /HPF (None Seen); RBC,URINE 0-2 /HPF (0-2); SQUAMOUS EPITHELIAL CELL,UR Rare /LPF (None Seen)
[2019-02-15 05:31] VITALS: BP 118/68
== END 2019-02-15 05:54 | disposition home or self-care (01) ==
LOC: EMS 02:22
DX: R07.89 Other chest pain (principal); F25.9 Schizoaffective disorder, unspecified; F31.9 Bipolar disorder, unspecified; F20.9 Schizophrenia, unspecified; M19.90 Unspecified osteoarthritis, unspecified site; Z88.0 Allergy status to penicillin
CPT/HCPCS: 36415; 71045; 80053; 81001; 82550; 82962; 83880; 84443; 84484; 85025; 85610; 85730; 87086; 93005; 96374; 99285; J1885

== ENCOUNTER 2019-02-21 00:11 | Emergency (ER) | payer MEDICARE, OTHER ==
[~2019-02-21] VITALS: Ht 170.2 cm; Wt 72.7 kg
[2019-02-21 01:25] VITALS: BP 110/58
[2019-02-21] MEDS ORDERED: ACETAMINOPHEN 500 MG TABLET PO ONE (01:30)
== END 2019-02-21 01:47 | disposition home or self-care (01) ==
LOC: EMS 00:14
DX: J02.9 Acute pharyngitis, unspecified (principal); F25.0 Schizoaffective disorder, bipolar type; M19.90 Unspecified osteoarthritis, unspecified site

== ENCOUNTER 2019-02-28 17:12 | Emergency (ER) | payer MEDICARE, OTHER ==
[~2019-02-28] VITALS: Ht 162.6 cm; Wt 68.2 kg
[2019-02-28] MEDS ORDERED: DIVA-78 PO (17:31)
[2019-02-28] MEDS ORDERED: LORazepam 1 MG TABLET PO ONE (18:30)
[2019-02-28 20:36] VITALS: BP 119/70
== END 2019-02-28 21:08 | disposition home or self-care (01) ==
LOC: EMS 17:17
DX: F41.9 Anxiety disorder, unspecified (principal); F31.9 Bipolar disorder, unspecified; F20.9 Schizophrenia, unspecified; Z88.0 Allergy status to penicillin

== ENCOUNTER 2019-03-01 17:22 | Emergency (ER) | payer MEDICARE, OTHER ==
[~2019-03-01] VITALS: Ht 170.2 cm; Wt 68.0 kg
[2019-03-01 18:54] LABS: BASOPHILS % (AUTO) 1.8 % (0.0-2.0); EOSINOPHILS % (AUTO) 3.4 % (1.0-6.0); HEMATOCRIT 37.4 % (36-46); HEMOGLOBIN 12.2 g/dL (12.0-16.0); LYMPHOCYTES # (AUTO) 1.4 K/uL (1.0-4.8); LYMPHOCYTES % (AUTO) 42.6 % (22.0-44.0); MEAN CORPUSCULAR HEMOGLOBIN 32.5 pg (26.0-34.0); MEAN CORPUSCULAR HGB CONC 32.6 G/dL (31.0-37.0); MEAN CORPUSCULAR VOLUME 100 fL (80-100); MONOCYTES # (AUTO) 0.4 K/uL (0.1-1.0); MONOCYTES % (AUTO) 12.5 % (2.0-9.0); NEUTROPHILS # (AUTO) 1.4 K/uL (1.8-7.7); NEUTROPHILS % (AUTO) 39.7 % (40.0-70.0); PLATELET COUNT (AUTO) 177 K/uL (150-450); RED BLOOD CELL COUNT(AUTO) 3.75 MIL/uL (4.00-5.20); RED CELL DISTRIBUTION WIDTH 13.8 % (11.5-14.5)
[2019-03-01 19:11] LABS: ANION GAP 10 mmol/L (8-16); CALCIUM, TOTAL 8.9 mg/dL (8.8-10.5); CARBON DIOXIDE 25 mmol/L (22-29); CHLORIDE 103 mmol/L (98-107); CREATININE 0.79 mg/dL (0.60-1.30); GLOMERULAR FILTR. RATE CALC > 60 mL/min (>60); GLUCOSE,RANDOM 90 mg/dL (70-110); POTASSIUM 4.5 mmol/L (3.5-5.1); SODIUM SERUM 138 mmol/L (136-145); UREA NITROGEN, BLOOD 9 mg/dL (7-18)
[2019-03-01 19:18] LABS: ALBUMIN 3.6 g/dL (3.4-5.0); ALKALINE PHOSPHATASE 51 U/L (46-116); ASPARTATE AMINOTRANSFERASE 18 U/L (15-37); BILIRUBIN,TOTAL 0.4 mg/dL (0.1-1.0); TOTAL PROTEIN, SERUM 6.8 g/dL (6.4-8.2); VALPROIC ACID 32 mcg/mL (50-100)
[2019-03-01 19:26] LABS: ALANINE AMINOTRANSFERASE 5 U/L (12-78)
[2019-03-01] MEDS: LORazepam 1 MG TABLET PO ONE (20:26)
[2019-03-01 20:58] VITALS: BP 120/74
== END 2019-03-01 21:14 | disposition home or self-care (01) ==
LOC: EMS 17:25
DX: F25.9 Schizoaffective disorder, unspecified (principal); F41.9 Anxiety disorder, unspecified; F31.9 Bipolar disorder, unspecified; Z88.0 Allergy status to penicillin
CPT/HCPCS: 93005

== ENCOUNTER 2019-03-13 12:08 | Emergency (ER) | payer MEDICARE, OTHER ==
[~2019-03-13] VITALS: Ht 170.2 cm; Wt 68.2 kg
[2019-03-13 14:24] VITALS: BP 117/62
== END 2019-03-13 14:24 | disposition home or self-care (01) ==
LOC: EMS 12:11
DX: S80.02XA Contusion of left knee, initial encounter (principal); J02.9 Acute pharyngitis, unspecified; F31.9 Bipolar disorder, unspecified; F20.9 Schizophrenia, unspecified; Z88.0 Allergy status to penicillin; X58.XXXA Exposure to other specified factors, initial encounter; Y93.89 Activity, other specified; Y92.89 Other specified places as the place of occurrence of the external cause; Y99.8 Other external cause status

== ENCOUNTER 2019-06-26 00:46 | Inpatient (IN) | payer MEDICARE, MEDICAID ==
[~2019-06-26] VITALS: Ht 162.6 cm; Wt 67.1 kg
[2019-06-26] MEDS ORDERED: CHLO100T23 PO (00:54)
[2019-06-26] MEDS ORDERED: HALOPERIDOL 5 MG TABLET PO PRN (02:30)
[2019-06-26] MEDS ORDERED: ZOLPIDEM TARTRATE 10 MG TABLET PO PRN (02:30)
[2019-06-26 04:45] VITALS: BP 104/88
[2019-06-26] MEDS ORDERED: INFLUENZA VIRUS VACCINE QVS 2019-20 (3YR+)/PF 60 MCG/0.5 ML SYRINGE IM ONE (06:15)
[2019-06-26 08:00] VITALS: BP 129/60
[2019-06-26] MEDS: DIVALPROEX SODIUM 500 MG DR TABLET PO SCH (16:49)
[2019-06-26 17:23] VITALS: BP 120/90
[2019-06-26] MEDS: ChlorproMAZINE HCL 100 MG TABLET PO SCH (20:57)
[2019-06-27] MEDS: LORazepam 2 MG TABLET PO PRN (00:37)
[2019-06-27] MEDS: DIVALPROEX SODIUM 500 MG DR TABLET PO SCH ×2 (09:29→17:41)
[2019-06-27 18:41] VITALS: BP 102/64
[2019-06-27] MEDS: ChlorproMAZINE HCL 100 MG TABLET PO SCH ×2 (21:00→21:12)
[2019-06-28] MEDS: LORazepam 2 MG TABLET PO PRN (00:03)
[2019-06-28 00:47] VITALS: BP 122/85
[2019-06-28 07:50] LABS: CHOL/HDL RATIO 2.3 (3.9-5.7)
[2019-06-28] MEDS: DIVALPROEX SODIUM 500 MG DR TABLET PO SCH ×2 (09:43→17:05)
[2019-06-28 09:52] VITALS: BP 105/58
[2019-06-28 17:04] VITALS: BP 116/57
[2019-06-28] MEDS: RisperiDONE 1 MG TABLET PO SCH (17:15)
[2019-06-29 05:56] VITALS: BP 131/74
[2019-06-29] MEDS: DIVALPROEX SODIUM 500 MG DR TABLET PO SCH (08:33)
[2019-06-29] MEDS: RisperiDONE 1 MG TABLET PO SCH ×3 (08:33→16:34)
[2019-06-29 10:40] VITALS: BP 111/45
[2019-06-29] MEDS: DIVALPROEX SODIUM 250 MG DR TABLET PO SCH (16:28)
[2019-06-29 17:07] VITALS: BP 114/63
[2019-06-30] VITALS: BP 112/59
[2019-06-30] MEDS: RisperiDONE 1 MG TABLET PO SCH ×2 (09:00→16:17)
[2019-06-30 09:34] VITALS: BP 119/75
[2019-06-30] MEDS: DIVALPROEX SODIUM 250 MG DR TABLET PO SCH ×2 (10:00→16:18)
[2019-06-30 17:40] VITALS: BP 114/64
[2019-07-01] MEDS: LORazepam 2 MG TABLET PO PRN (00:56)
[2019-07-01 01:16] VITALS: BP 122/66
[2019-07-01] MEDS: DIVALPROEX SODIUM 250 MG DR TABLET PO SCH ×2 (08:23→16:09)
[2019-07-01 08:30] VITALS: BP 102/58
[2019-07-01] MEDS: RisperiDONE 1 MG TABLET PO SCH ×2 (09:00→16:11)
[2019-07-01 17:07] VITALS: BP 94/54
[2019-07-02] MEDS: LORazepam 2 MG TABLET PO PRN (01:16)
[2019-07-02 01:33] VITALS: BP 112/66
[2019-07-02] MEDS: RisperiDONE 1 MG TABLET PO SCH (09:00)
[2019-07-02] MEDS: DIVALPROEX SODIUM 250 MG DR TABLET PO SCH ×2 (09:55→16:43)
[2019-07-02 10:34] VITALS: BP 112/68
[2019-07-02 17:47] VITALS: BP 108/61
[2019-07-03 07:13] LABS: BASOPHILS % (AUTO) 1.3 % (0.0-2.0); EOSINOPHILS % (AUTO) 5.4 % (1.0-6.0); HEMATOCRIT 38.4 % (36-46); HEMOGLOBIN 13.2 g/dL (12.0-16.0); LYMPHOCYTES # (AUTO) 1.3 K/uL (1.0-4.8); LYMPHOCYTES % (AUTO) 46.7 % (22.0-44.0); MEAN CORPUSCULAR HEMOGLOBIN 32.9 pg (26.0-34.0); MEAN CORPUSCULAR HGB CONC 34.4 G/dL (31.0-37.0); MEAN CORPUSCULAR VOLUME 96 fL (80-100); MONOCYTES # (AUTO) 0.4 K/uL (0.1-1.0); MONOCYTES % (AUTO) 15.6 % (2.0-9.0); NEUTROPHILS # (AUTO) 0.9 K/uL (1.8-7.7); PLATELET COUNT (AUTO) 198 K/uL (150-450); RED CELL DISTRIBUTION WIDTH 13.2 % (11.5-14.5)
[2019-07-03 07:25] LABS: ALANINE AMINOTRANSFERASE 10 U/L (12-78); ALBUMIN 2.7 g/dL (3.4-5.0); ALKALINE PHOSPHATASE 48 U/L (46-116); ANION GAP 5 mmol/L (8-16); ASPARTATE AMINOTRANSFERASE 16 U/L (15-37); BILIRUBIN,TOTAL 0.3 mg/dL (0.1-1.0); CALCIUM, TOTAL 8.5 mg/dL (8.8-10.5); CARBON DIOXIDE 27 mmol/L (22-29); CHLORIDE 102 mmol/L (98-107); GLOMERULAR FILTR. RATE CALC > 60 mL/min (>60); GLUCOSE,RANDOM 79 mg/dL (70-110); POTASSIUM 4.6 mmol/L (3.5-5.1); SODIUM SERUM 134 mmol/L (136-145); UREA NITROGEN, BLOOD 20 mg/dL (7-18)
[2019-07-03 08:30] VITALS: BP 94/65
[2019-07-03] MEDS: DIVALPROEX SODIUM 250 MG DR TABLET PO SCH ×2 (08:44→16:30)
[2019-07-03 18:01] VITALS: BP 128/51
[2019-07-03] MEDS: LORazepam 2 MG TABLET PO PRN (22:02)
[2019-07-03] MEDS: BISMUTH SUBSALICYLATE 262 MG CHEWABLE TABLET CHEW PRN (23:06)
[2019-07-04] MEDS: DIVALPROEX SODIUM 250 MG DR TABLET PO SCH ×2 (09:08→16:16)
[2019-07-04 09:17] VITALS: BP 102/78
[2019-07-04 16:00] VITALS: BP 92/51
[2019-07-04] MEDS: LORazepam 2 MG TABLET PO PRN (22:18)
[2019-07-04] MEDS: BISMUTH SUBSALICYLATE 262 MG CHEWABLE TABLET CHEW PRN (22:34)
[2019-07-05] MEDS: PANTOPRAZOLE SODIUM 40 MG DR TABLET PO SCH (08:54)
[2019-07-05] MEDS: DIVALPROEX SODIUM 250 MG DR TABLET PO SCH ×2 (08:54→17:17)
[2019-07-05 09:05] VITALS: BP 102/64
[2019-07-05] MEDS: BISMUTH SUBSALICYLATE 262 MG CHEWABLE TABLET CHEW PRN (12:33)
[2019-07-05 17:42] VITALS: BP 101/62
[2019-07-06] MEDS: LORazepam 2 MG TABLET PO PRN (00:25)
[2019-07-06] MEDS: BISMUTH SUBSALICYLATE 262 MG CHEWABLE TABLET CHEW PRN ×2 (00:25→12:53)
[2019-07-06 00:47] VITALS: BP 115/71
[2019-07-06] MEDS: DIVALPROEX SODIUM 250 MG DR TABLET PO SCH ×2 (08:58→17:23)
[2019-07-06] MEDS: PANTOPRAZOLE SODIUM 40 MG DR TABLET PO SCH (08:58)
[2019-07-06 12:26] VITALS: BP 115/69
[2019-07-06 18:08] VITALS: BP 105/59
[2019-07-07] MEDS: LORazepam 2 MG TABLET PO PRN (00:52)
[2019-07-07 01:44] VITALS: BP 114/71
[2019-07-07] MEDS: PANTOPRAZOLE SODIUM 40 MG DR TABLET PO SCH (09:00)
[2019-07-07 09:31] VITALS: BP 100/60
[2019-07-07] MEDS: DIVALPROEX SODIUM 250 MG DR TABLET PO SCH (09:53)
[2019-07-07] MEDS ORDERED: PANT40TA25 PO (11:38)
[2019-07-07] MEDS: BISMUTH SUBSALICYLATE 262 MG CHEWABLE TABLET CHEW PRN (12:08)
== END 2019-07-07 16:00 | disposition home or self-care (01) | DRG 885 ==
LOC: EMS 00:47 → 3EI 02:49
PROVIDERS: ADMIT Psychiatry & Neurology Psychiatry; ATTEND Psychiatry & Neurology Psychiatry
DX: F20.0 Paranoid schizophrenia (principal); E87.1 Hypo-osmolality and hyponatremia; K21.9 Gastro-esophageal reflux disease without esophagitis; Z28.21 Immunization not carried out because of patient refusal; Z59.0 Homelessness; M10.9 Gout, unspecified; M19.90 Unspecified osteoarthritis, unspecified site; D64.9 Anemia, unspecified; K27.9 Peptic ulcer, site unspecified, unspecified as acute or chronic, without hemorrhage or perforation; Z79.899 Other long term (current) drug therapy; Z91.19 Patient's noncompliance with other medical treatment and regimen

== ENCOUNTER 2019-07-12 21:02 | Emergency (ER) | payer MEDICARE, OTHER ==
[~2019-07-12] VITALS: Ht 170.2 cm; Wt 68.2 kg
[~2019-07-12 21:02] MED LIST changes: +PANT40TA25 PO
[2019-07-12 21:38] VITALS: BP 135/70
== END 2019-07-13 00:12 | disposition left against medical advice (07) ==
LOC: EMS 21:03
DX: F41.9 Anxiety disorder, unspecified (principal); Z53.21 Procedure and treatment not carried out due to patient leaving prior to being seen by health care provider

== ENCOUNTER 2019-07-14 19:55 | Emergency (ER) | payer MEDICARE, OTHER ==
[~2019-07-14] VITALS: Ht 167.6 cm; Wt 65.9 kg
[2019-07-15 00:30] VITALS: BP 127/78
[2019-07-15] MEDS ORDERED: ACETAMINOPHEN 325 MG TABLET ONE (00:43)
[2019-07-15] MEDS ORDERED: IBUPROFEN 400 MG TABLET PO ONE (01:00)
== END 2019-07-15 01:05 | disposition home or self-care (01) ==
LOC: EMS 19:55
DX: R51 Headache (principal); F31.9 Bipolar disorder, unspecified; F20.9 Schizophrenia, unspecified; Z88.0 Allergy status to penicillin
CPT/HCPCS: 70450

== ENCOUNTER 2019-09-21 01:13 | Emergency (ER) | payer MEDICARE, OTHER ==
[~2019-09-21] VITALS: Ht 165.1 cm; Wt 68.2 kg
[2019-09-21] MEDS ORDERED: BREX3TAB PO (02:12)
[2019-09-21 02:16] LABS: GLUCOSE,POINT OF CARE 79 MG/DL (70-110)
[2019-09-21 02:41] LABS: EOSINOPHILS % (AUTO) 1.9 % (1.0-6.0); HEMATOCRIT 41.8 % (36-46); HEMOGLOBIN 13.8 g/dL (12.0-16.0); LYMPHOCYTES # (AUTO) 1.6 K/uL (1.0-4.8); LYMPHOCYTES % (AUTO) 41.4 % (22.0-44.0); MEAN CORPUSCULAR HGB CONC 33.1 G/dL (31.0-37.0); MEAN CORPUSCULAR VOLUME 97 fL (80-100); MONOCYTES # (AUTO) 0.5 K/uL (0.1-1.0); MONOCYTES % (AUTO) 12.9 % (2.0-9.0); NEUTROPHILS # (AUTO) 1.6 K/uL (1.8-7.7); NEUTROPHILS % (AUTO) 42.8 % (40.0-70.0); PLATELET COUNT (AUTO) 233 K/uL (150-450); RED BLOOD CELL COUNT(AUTO) 4.33 MIL/uL (4.00-5.20); RED CELL DISTRIBUTION WIDTH 14.3 % (11.5-14.5)
[2019-09-21 02:49] LABS: ANION GAP 5 mmol/L (8-16); CALCIUM, TOTAL 9.9 mg/dL (8.8-10.5); CARBON DIOXIDE 29 mmol/L (22-29); CHLORIDE 101 mmol/L (98-107); CREATININE 0.88 mg/dL (0.60-1.30); GLOMERULAR FILTR. RATE CALC > 60 mL/min (>60); GLUCOSE,RANDOM 100 mg/dL (70-110); POTASSIUM 4.4 mmol/L (3.5-5.1); SODIUM SERUM 135 mmol/L (136-145); UREA NITROGEN, BLOOD 11 mg/dL (7-18)
[2019-09-21 02:55] LABS: ALANINE AMINOTRANSFERASE 14 U/L (12-78); ALBUMIN 3.8 g/dL (3.4-5.0); ALKALINE PHOSPHATASE 76 U/L (46-116); ASPARTATE AMINOTRANSFERASE 15 U/L (15-37); BILIRUBIN,TOTAL 0.4 mg/dL (0.1-1.0); TOTAL PROTEIN, SERUM 7.6 g/dL (6.4-8.2)
[2019-09-21 05:06] VITALS: BP 131/72
== END 2019-09-21 05:07 | disposition home or self-care (01) ==
LOC: EMS 01:13
DX: R55 Syncope and collapse (principal); R42 Dizziness and giddiness; F31.9 Bipolar disorder, unspecified; Z88.0 Allergy status to penicillin
CPT/HCPCS: 70450; 82948; 93005

== ENCOUNTER 2019-10-08 03:26 | Emergency (ER) | payer MEDICARE, OTHER ==
[~2019-10-08] VITALS: Ht 165.1 cm; Wt 72.7 kg
[~2019-10-08 03:26] MED LIST changes: +BREX3TAB PO; -DIVA-78 PO; -PANT40TA25 PO
[2019-10-08 04:35] LABS: APPEARANCE,URINE CLEAR (CLEAR); BILIRUBIN,URINE NEGATIVE (NEGATIVE); GLUCOSE, URINE (UA) NEGATIVE (NEGATIVE); KETONES,URINE NEGATIVE (NEGATIVE); LEUKOCYTE ESTERASE ,URINE NEGATIVE (NEGATIVE); NITRATE,URINE NEGATIVE (NEGATIVE); OCCULT BLOOD,URINE SMALL (NEGATIVE); PROTEIN,URINE NEGATIVE (NEGATIVE); UROBILINOGEN,URINE 0.2 mg/dL (<=1.0)
[2019-10-08 04:35] LABS: BASOPHILS % (AUTO) 0.4 % (0.0-2.0); EOSINOPHILS % (AUTO) 1.8 % (1.0-6.0); HEMATOCRIT 38.8 % (36-46); HEMOGLOBIN 12.9 g/dL (12.0-16.0); LYMPHOCYTES # (AUTO) 1.7 K/uL (1.0-4.8); LYMPHOCYTES % (AUTO) 42.3 % (22.0-44.0); MEAN CORPUSCULAR HEMOGLOBIN 32.2 pg (26.0-34.0); MEAN CORPUSCULAR HGB CONC 33.2 G/dL (31.0-37.0); MEAN CORPUSCULAR VOLUME 97 fL (80-100); MONOCYTES # (AUTO) 0.5 K/uL (0.1-1.0); MONOCYTES % (AUTO) 11.6 % (2.0-9.0); NEUTROPHILS # (AUTO) 1.8 K/uL (1.8-7.7); NEUTROPHILS % (AUTO) 43.9 % (40.0-70.0); PLATELET COUNT (AUTO) 236 K/uL (150-450); RED CELL DISTRIBUTION WIDTH 14.2 % (11.5-14.5)
[2019-10-08 04:45] LABS: ANION GAP 5 mmol/L (8-16); CALCIUM, TOTAL 9.1 mg/dL (8.8-10.5); CARBON DIOXIDE 27 mmol/L (22-29); CHLORIDE 102 mmol/L (98-107); CREATININE 0.88 mg/dL (0.60-1.30); GLOMERULAR FILTR. RATE CALC > 60 mL/min (>60); GLUCOSE,RANDOM 107 mg/dL (70-110); POTASSIUM 4.3 mmol/L (3.5-5.1); SODIUM SERUM 134 mmol/L (136-145); UREA NITROGEN, BLOOD 14 mg/dL (7-18)
[2019-10-08 04:49] LABS: BACTERIA,URINE None Seen /HPF (None Seen); RBC,URINE None Seen /HPF (0-2); SQUAMOUS EPITHELIAL CELL,UR Few /LPF (None Seen); WBC,URINE 0-2 /HPF (0-5)
[2019-10-08 04:51] LABS: ALANINE AMINOTRANSFERASE 15 U/L (12-78); ALKALINE PHOSPHATASE 73 U/L (46-116); ASPARTATE AMINOTRANSFERASE 21 U/L (15-37); BILIRUBIN,TOTAL 0.4 mg/dL (0.1-1.0); LIPASE 113 U/L (73-393); TOTAL PROTEIN, SERUM 7.3 g/dL (6.4-8.2)
[2019-10-08 05:12] VITALS: BP 105/62
== END 2019-10-08 05:52 | disposition home or self-care (01) ==
LOC: EMS 03:26
DX: R10.13 Epigastric pain (principal); R11.0 Nausea; F31.9 Bipolar disorder, unspecified; F20.9 Schizophrenia, unspecified; Z88.0 Allergy status to penicillin
CPT/HCPCS: 74022; 93005

== ENCOUNTER 2019-11-21 21:10 | Emergency (ER) | payer MEDICARE, OTHER ==
[~2019-11-21] VITALS: Ht 165.1 cm; Wt 59.1 kg
[2019-11-21] MEDS ORDERED: OXYMETAZOLINE HCL 0.05% 15 ML NASAL SPRAY NASAL ONE (23:15)
[2019-11-21 23:37] VITALS: BP 129/71
== END 2019-11-22 00:05 | disposition home or self-care (01) ==
LOC: EMS 21:14
DX: R09.81 Nasal congestion (principal); F25.0 Schizoaffective disorder, bipolar type; J30.2 Other seasonal allergic rhinitis

== ENCOUNTER 2019-12-04 06:31 | Emergency (ER) | payer MEDICARE, OTHER ==
[~2019-12-04] VITALS: Ht 165.1 cm; Wt 65.9 kg
[2019-12-04 06:40] VITALS: BP 136/82
== END 2019-12-04 06:45 | disposition left against medical advice (07) ==
LOC: EMS 06:31
DX: Z04.6 Encounter for general psychiatric examination, requested by authority (principal); Z53.21 Procedure and treatment not carried out due to patient leaving prior to being seen by health care provider

== ENCOUNTER 2019-12-04 13:10 | Emergency (ER) | payer MEDICARE, OTHER | END 2019-12-04 14:05 | disposition left against medical advice (07) | LOC: EMS 13:12 | DX: R19.7 Diarrhea, unspecified (principal); Z53.21 Procedure and treatment not carried out due to patient leaving prior to being seen by health care provider ==

== ENCOUNTER 2019-12-04 16:03 | Emergency (ER) | payer MEDICARE, OTHER ==
[~2019-12-04] VITALS: Ht 165.1 cm; Wt 43.2 kg
[2019-12-04 19:01] VITALS: BP 124/74
== END 2019-12-04 19:06 | disposition home or self-care (01) ==
LOC: EMS 16:11
DX: F20.0 Paranoid schizophrenia (principal); R19.7 Diarrhea, unspecified

== ENCOUNTER 2019-12-30 05:56 | Emergency (ER) | payer MEDICARE, OTHER ==
[~2019-12-30] VITALS: Ht 165.1 cm; Wt 60.4 kg
[2019-12-30] MEDS ORDERED: OXYMETAZOLINE HCL 0.05% 15 ML NASAL SPRAY NASAL ONE (06:30)
[2019-12-30 06:43] VITALS: BP 109/71
== END 2019-12-30 06:50 | disposition home or self-care (01) ==
LOC: EMS 05:56
DX: J30.9 Allergic rhinitis, unspecified (principal); F31.9 Bipolar disorder, unspecified; F20.9 Schizophrenia, unspecified; Z88.0 Allergy status to penicillin

== ENCOUNTER 2020-01-19 22:19 | Emergency (ER) | payer MEDICARE, OTHER | END 2020-01-19 23:30 | disposition left against medical advice (07) | LOC: EMS 22:19 | DX: M54.2 Cervicalgia (principal); Z53.21 Procedure and treatment not carried out due to patient leaving prior to being seen by health care provider ==

== ENCOUNTER 2020-03-28 14:57 | Emergency (ER) | payer MEDICARE, OTHER | END 2020-03-28 19:30 | disposition left against medical advice (07) | LOC: EMS 15:01 | DX: F41.9 Anxiety disorder, unspecified (principal); Z53.21 Procedure and treatment not carried out due to patient leaving prior to being seen by health care provider ==

== ENCOUNTER → 2020-03-31 | Emergency (ER) | payer MEDICARE, OTHER ==
[~2020-03-31] VITALS: Ht 165.1 cm; Wt 50.0 kg
[~2020-03-31] MED LIST changes: +LORazepam 1 MG TABLET PO ONE; +QUEtiapine FUMARATE 25 MG TABLET PO ONE
[2020-04-01 10:25] VITALS: BP 125/62
== END | disposition home or self-care (01) ==
LOC: EMS 15:31
DX: F41.9 Anxiety disorder, unspecified (principal); F31.9 Bipolar disorder, unspecified; F20.9 Schizophrenia, unspecified; Z88.0 Allergy status to penicillin

== ENCOUNTER 2020-04-01 11:24 | Emergency (ER) | payer MEDICARE, OTHER ==
[~2020-04-01] VITALS: Ht 162.6 cm; Wt 52.3 kg
[2020-04-01 11:45] VITALS: BP 126/62
== END 2020-04-01 12:57 | disposition home or self-care (01) ==
LOC: EMS 11:26
DX: F25.0 Schizoaffective disorder, bipolar type (principal); Z88.0 Allergy status to penicillin
CPT/HCPCS: 99283; Z7502

== ENCOUNTER 2020-04-18 22:36 | Inpatient (IN) | payer MEDICARE, OTHER ==
[~2020-04-18] VITALS: Ht 165.1 cm; Wt 62.7 kg
[2020-04-18 23:07] LABS: BASOPHILS % (AUTO) 1.2 % (0.0-2.0); EOSINOPHILS % (AUTO) 2.2 % (1.0-6.0); HEMATOCRIT 37.1 % (36-46); HEMOGLOBIN 12.2 g/dL (12.0-16.0); LYMPHOCYTES # (AUTO) 1.5 K/uL (1.0-4.8); LYMPHOCYTES % (AUTO) 38.8 % (22.0-44.0); MEAN CORPUSCULAR HEMOGLOBIN 32.6 pg (26.0-34.0); MEAN CORPUSCULAR HGB CONC 32.9 G/dL (31.0-37.0); MEAN CORPUSCULAR VOLUME 99 fL (80-100); MONOCYTES # (AUTO) 0.5 K/uL (0.1-1.0); MONOCYTES % (AUTO) 13.6 % (2.0-9.0); NEUTROPHILS # (AUTO) 1.7 K/uL (1.8-7.7); NEUTROPHILS % (AUTO) 44.2 % (40.0-70.0); PLATELET COUNT (AUTO) 213 K/uL (150-450); RED BLOOD CELL COUNT(AUTO) 3.75 MIL/uL (4.00-5.20); RED CELL DISTRIBUTION WIDTH 13.9 % (11.5-14.5)
[2020-04-18 23:18] LABS: ANION GAP 10 mmol/L (8-16); CALCIUM, TOTAL 8.6 mg/dL (8.8-10.5); CARBON DIOXIDE 25 mmol/L (22-29); CHLORIDE 103 mmol/L (98-107); CREATININE 1.07 mg/dL (0.60-1.30); GLOMERULAR FILTR. RATE CALC > 60 mL/min (>60); GLUCOSE,RANDOM 114 mg/dL (70-110); POTASSIUM 3.7 mmol/L (3.5-5.1); SODIUM SERUM 138 mmol/L (136-145); UREA NITROGEN, BLOOD 14 mg/dL (7-18)
[2020-04-18 23:34] LABS: B-TYPE NATRIURETIC PEPTIDE 86 pg/mL (0-100)
[2020-04-18 23:40] LABS: ALANINE AMINOTRANSFERASE 15 U/L (12-78); ALBUMIN 3.4 g/dL (3.4-5.0); ALKALINE PHOSPHATASE 56 U/L (46-116); ASPARTATE AMINOTRANSFERASE 19 U/L (15-37); BILIRUBIN,TOTAL 0.5 mg/dL (0.1-1.0); CREATINE KINASE, TOTAL ONLY 257 U/L (26-192)
[2020-04-19] VITALS (7 sets, daily range): BP systolic 106–129; BP diastolic 42–75
[2020-04-19] MEDS ORDERED: BISACODYL 10 MG RECTAL RECTAL SUPPOSITORY PR PRN
[2020-04-19] MEDS ORDERED: MAGNESIUM HYDROXIDE SUSPENSION 30 ML UDCUP PO PRN
[2020-04-19] MEDS ORDERED: 0.9% SODIUM CHLORIDE 10 ML SYRINGE IVP PRN
[2020-04-19] MEDS ORDERED: ONDANSETRON HCL 4 MG/2 ML VIAL IVP PRN
[2020-04-19] MEDS ORDERED: ACETAMINOPHEN 325 MG TABLET PO PRN ×2
[2020-04-19] MEDS ORDERED: HYDROCODONE/ACETAMINOPHEN 5-325 MG TABLET PO PRN
[2020-04-19] MEDS ORDERED: MORPHINE SULFATE 2 MG/ML SYRINGE IVP PRN
[2020-04-19] MEDS: ZOLPIDEM TARTRATE 5 MG TABLET PO PRN ×2 (01:19→21:10)
[2020-04-19] MEDS ORDERED: SENN1TAB72 PO (01:30)
[2020-04-19 06:14] LABS: BASOPHILS % (AUTO) 1.2 % (0.0-2.0); EOSINOPHILS % (AUTO) 3.4 % (1.0-6.0); HEMATOCRIT 31.9 % (36-46); HEMOGLOBIN 10.9 g/dL (12.0-16.0); LYMPHOCYTES # (AUTO) 1.1 K/uL (1.0-4.8); LYMPHOCYTES % (AUTO) 37.5 % (22.0-44.0); MEAN CORPUSCULAR HEMOGLOBIN 33.1 pg (26.0-34.0); MEAN CORPUSCULAR HGB CONC 34.1 G/dL (31.0-37.0); MEAN CORPUSCULAR VOLUME 97 fL (80-100); MONOCYTES # (AUTO) 0.4 K/uL (0.1-1.0); MONOCYTES % (AUTO) 14.3 % (2.0-9.0); NEUTROPHILS # (AUTO) 1.3 K/uL (1.8-7.7); NEUTROPHILS % (AUTO) 43.6 % (40.0-70.0); PLATELET COUNT (AUTO) 188 K/uL (150-450); RED BLOOD CELL COUNT(AUTO) 3.28 MIL/uL (4.00-5.20); RED CELL DISTRIBUTION WIDTH 13.8 % (11.5-14.5)
[2020-04-19 06:36] LABS: ANION GAP 8 mmol/L (8-16); CALCIUM, TOTAL 8.2 mg/dL (8.8-10.5); CARBON DIOXIDE 25 mmol/L (22-29); CHLORIDE 107 mmol/L (98-107); CHOL/HDL RATIO 2.1 (3.9-5.7); CHOLESTEROL 138 mg/dL (131-200); CREATININE 0.81 mg/dL (0.60-1.30); GLOMERULAR FILTR. RATE CALC > 60 mL/min (>60); GLUCOSE,RANDOM 87 mg/dL (70-110); HDL CHOLESTEROL 66 mg/dL (40-60); LDL CHOL (CALC.) 68 mg/dL (0-130); POTASSIUM 3.5 mmol/L (3.5-5.1); SODIUM SERUM 140 mmol/L (136-145); TRIGLYCERIDES 18 mg/dL (15-150); UREA NITROGEN, BLOOD 11 mg/dL (7-18)
[2020-04-19] MEDS: ASPIRIN 81 MG CHEWABLE TABLET PO SCH (08:49)
[2020-04-19] MEDS: DOCUSATE SODIUM 100 MG CAPSULE PO SCH ×2 (08:49→21:00)
[2020-04-19] MEDS: PANTOPRAZOLE SODIUM 40 MG DR TABLET PO SCH (08:49)
[2020-04-19] MEDS: NITROGLYCERIN 2% (1 GM=INCH) PACKET TP SCH ×4 (08:50→23:57)
[2020-04-19] MEDS: HEPARIN SODIUM,PORCINE 5,000 UNITS/ML VIAL SQ SCH ×4 (08:56→23:51)
[2020-04-19] MEDS: ONDANSETRON HCL 4 MG/2 ML VIAL IVP PRN ×2 (11:07→23:51)
[2020-04-19] MEDS ORDERED: LOPERAMIDE HCL 2 MG CAPSULE PO PRN (16:15)
[2020-04-19] MEDS ORDERED: LOPERAMIDE HCL 2 MG CAPSULE PO ONE (16:15)
[2020-04-20 04:21] VITALS: BP 125/78
[2020-04-20 06:55] LABS: BASOPHILS % (AUTO) 0.9 % (0.0-2.0); EOSINOPHILS % (AUTO) 2.6 % (1.0-6.0); HEMATOCRIT 34.8 % (36-46); HEMOGLOBIN 11.8 g/dL (12.0-16.0); LYMPHOCYTES # (AUTO) 0.9 K/uL (1.0-4.8); LYMPHOCYTES % (AUTO) 23.7 % (22.0-44.0); MEAN CORPUSCULAR HEMOGLOBIN 33.1 pg (26.0-34.0); MEAN CORPUSCULAR VOLUME 97 fL (80-100); MONOCYTES # (AUTO) 0.6 K/uL (0.1-1.0); MONOCYTES % (AUTO) 15.3 % (2.0-9.0); NEUTROPHILS # (AUTO) 2.2 K/uL (1.8-7.7); NEUTROPHILS % (AUTO) 57.5 % (40.0-70.0); PLATELET COUNT (AUTO) 174 K/uL (150-450); RED BLOOD CELL COUNT(AUTO) 3.57 MIL/uL (4.00-5.20); RED CELL DISTRIBUTION WIDTH 13.6 % (11.5-14.5)
[2020-04-20 07:13] LABS: ANION GAP 7 mmol/L (8-16); CALCIUM, TOTAL 8.9 mg/dL (8.8-10.5); CARBON DIOXIDE 26 mmol/L (22-29); CHLORIDE 106 mmol/L (98-107); CREATININE 0.77 mg/dL (0.60-1.30); GLOMERULAR FILTR. RATE CALC > 60 mL/min (>60); GLUCOSE,RANDOM 89 mg/dL (70-110); POTASSIUM 4.2 mmol/L (3.5-5.1); SODIUM SERUM 139 mmol/L (136-145); UREA NITROGEN, BLOOD 7 mg/dL (7-18)
[2020-04-20 07:48] VITALS: BP 118/76
[2020-04-20] MEDS: DOCUSATE SODIUM 100 MG CAPSULE PO SCH (08:05)
[2020-04-20] MEDS: HEPARIN SODIUM,PORCINE 5,000 UNITS/ML VIAL SQ SCH (08:05)
[2020-04-20] MEDS: NITROGLYCERIN 2% (1 GM=INCH) PACKET TP SCH (08:05)
[2020-04-20] MEDS: ASPIRIN 81 MG CHEWABLE TABLET PO SCH (08:06)
[2020-04-20] MEDS: PANTOPRAZOLE SODIUM 40 MG DR TABLET PO SCH (08:06)
[2020-04-20 11:02] VITALS: BP 140/72
[2020-04-20 22:24] LABS: GLUCOMETER DEV NAME(LOC) 5N.3; GLUCOSE,POINT OF CARE 107 MG/DL (70-110)
== END 2020-04-20 16:15 | disposition home or self-care (01) | DRG 206 ==
LOC: EMS 22:40 → 5S 23:30
PROVIDERS: ADMIT Internal Medicine; ATTEND Internal Medicine
DX: M94.0 Chondrocostal junction syndrome [Tietze] (principal); E44.0 Moderate protein-calorie malnutrition; E87.1 Hypo-osmolality and hyponatremia; D72.819 Decreased white blood cell count, unspecified; F20.9 Schizophrenia, unspecified; F31.9 Bipolar disorder, unspecified; K59.00 Constipation, unspecified; M10.9 Gout, unspecified; M19.90 Unspecified osteoarthritis, unspecified site; Z88.0 Allergy status to penicillin; Z79.899 Other long term (current) drug therapy; Z68.23 Body mass index [BMI] 23.0-23.9, adult
CPT/HCPCS: 87081; 93005; 93306; J1644; J2405; 36415-L1; 36415-TC; 71045-TC; 80061-TC

== ENCOUNTER 2020-06-15 19:13 | Emergency (ER) | payer MEDICARE, OTHER ==
[~2020-06-15] VITALS: Ht 165.1 cm; Wt 63.6 kg
[~2020-06-15 19:13] MED LIST changes: -BREX3TAB PO; -LORazepam 1 MG TABLET PO ONE; -QUEtiapine FUMARATE 25 MG TABLET PO ONE; +SENN1TAB72 PO
[2020-06-15 22:06] VITALS: BP 111/58
== END 2020-06-15 22:06 | disposition home or self-care (01) ==
LOC: EMS 19:13
DX: F41.9 Anxiety disorder, unspecified (principal); F31.9 Bipolar disorder, unspecified; F20.9 Schizophrenia, unspecified; Z88.0 Allergy status to penicillin

== ENCOUNTER 2020-06-19 13:38 | Emergency (ER) | payer MEDICARE, OTHER ==
[~2020-06-19] VITALS: Ht 162.6 cm; Wt 50.0 kg
[2020-06-19] MEDS ORDERED: HydrOXYzine PAMOATE 50 MG CAPSULE PO ONE (17:00)
[2020-06-19 18:18] LABS: BASOPHILS % (AUTO) 1.1 % (0.0-2.0); EOSINOPHILS % (AUTO) 2.8 % (1.0-6.0); HEMATOCRIT 36.8 % (36-46); HEMOGLOBIN 12.5 g/dL (12.0-16.0); LYMPHOCYTES # (AUTO) 1.4 K/uL (1.0-4.8); LYMPHOCYTES % (AUTO) 39.3 % (22.0-44.0); MEAN CORPUSCULAR HEMOGLOBIN 32.7 pg (26.0-34.0); MEAN CORPUSCULAR VOLUME 96 fL (80-100); MONOCYTES # (AUTO) 0.4 K/uL (0.1-1.0); MONOCYTES % (AUTO) 12.6 % (2.0-9.0); NEUTROPHILS # (AUTO) 1.5 K/uL (1.8-7.7); NEUTROPHILS % (AUTO) 44.2 % (40.0-70.0); PLATELET COUNT (AUTO) 194 K/uL (150-450); RED BLOOD CELL COUNT(AUTO) 3.84 MIL/uL (4.00-5.20); RED CELL DISTRIBUTION WIDTH 13.5 % (11.5-14.5)
[2020-06-19 18:24] LABS: ANION GAP 5 mmol/L (8-16); CALCIUM, TOTAL 8.5 mg/dL (8.8-10.5); CARBON DIOXIDE 27 mmol/L (22-29); CHLORIDE 104 mmol/L (98-107); CREATININE 0.77 mg/dL (0.60-1.30); GLOMERULAR FILTR. RATE CALC > 60 mL/min (>60); GLUCOSE,RANDOM 87 mg/dL (70-110); POTASSIUM 3.6 mmol/L (3.5-5.1); SODIUM SERUM 136 mmol/L (136-145); UREA NITROGEN, BLOOD 17 mg/dL (7-18)
[2020-06-19 18:39] LABS: ALANINE AMINOTRANSFERASE 16 U/L (12-78); ALBUMIN 3.5 g/dL (3.4-5.0); ALKALINE PHOSPHATASE 64 U/L (46-116); ASPARTATE AMINOTRANSFERASE 33 U/L (15-37); BILIRUBIN,TOTAL 0.5 mg/dL (0.1-1.0); FREE T4 (FREE THYROXINE) 1.28 ng/dL (0.76-1.46); THYROID STIMULATING HORMONE 0.91 uIU/mL (0.36-3.74); TOTAL PROTEIN, SERUM 7.1 g/dL (6.4-8.2)
[2020-06-19 19:00] VITALS: BP 118/75
== END 2020-06-19 19:59 | disposition home or self-care (01) ==
LOC: EMS 13:44
DX: F25.0 Schizoaffective disorder, bipolar type (principal)
CPT/HCPCS: 80053; 84439; 84443; 85025; 99285; G0480

== ENCOUNTER 2020-07-02 11:42 | Emergency (ER) | payer MEDICARE, OTHER ==
[~2020-07-02] VITALS: Ht 165.1 cm; Wt 59.1 kg
[2020-07-02 11:46] VITALS: BP 111/54
== END 2020-07-02 12:33 | disposition home or self-care (01) ==
LOC: EMS 11:45
DX: F25.0 Schizoaffective disorder, bipolar type (principal); D64.9 Anemia, unspecified
CPT/HCPCS: Z7502

== ENCOUNTER 2020-10-21 17:22 | Emergency (ER) | payer MEDICARE, OTHER ==
[~2020-10-21] VITALS: Ht 165.1 cm; Wt 50.0 kg
[2020-10-21 17:39] VITALS: BP 123/72
== END 2020-10-21 18:36 | disposition home or self-care (01) ==
LOC: EMS 17:22
DX: Z20.822 Contact with and (suspected) exposure to COVID-19 (principal)
CPT/HCPCS: 99283; U0003

== ENCOUNTER 2020-11-11 22:52 | Emergency (ER) | payer MEDICARE, OTHER | END 2020-11-12 04:59 | disposition left against medical advice (07) | LOC: EMS 22:54 | DX: Z00.00 Encounter for general adult medical examination without abnormal findings (principal); Z53.21 Procedure and treatment not carried out due to patient leaving prior to being seen by health care provider ==

== ENCOUNTER 2020-11-12 06:36 | Emergency (ER) | payer MEDICARE, OTHER | END 2020-11-12 08:39 | disposition home or self-care (01) | LOC: EMS 06:37 | DX: S20.212A Contusion of left front wall of thorax, initial encounter (principal); F31.9 Bipolar disorder, unspecified; F20.9 Schizophrenia, unspecified; Z88.0 Allergy status to penicillin; W22.8XXA Striking against or struck by other objects, initial encounter; Y93.89 Activity, other specified; Y92.89 Other specified places as the place of occurrence of the external cause; Y99.8 Other external cause status | CPT/HCPCS: 71101; 99283 ==

== ENCOUNTER 2020-11-16 18:06 | Emergency (ER) | payer MEDICARE, OTHER ==
[~2020-11-16] VITALS: Ht 165.1 cm; Wt 59.1 kg
[2020-11-16] MEDS ORDERED: SODIUM CHLORIDE 0.9% 1,000 ML IV ONE (18:30)
[2020-11-16] MEDS ORDERED: KETOROLAC TROMETHAMINE 30 MG/ML VIAL IVP ONE (18:30)
[2020-11-16 20:27] LABS: APPEARANCE,URINE CLEAR (CLEAR); BILIRUBIN,URINE NEGATIVE (NEGATIVE); GLUCOSE, URINE (UA) NEGATIVE (NEGATIVE); KETONES,URINE NEGATIVE (NEGATIVE); LEUKOCYTE ESTERASE ,URINE TRACE (NEGATIVE); NITRATE,URINE NEGATIVE (NEGATIVE); OCCULT BLOOD,URINE NEGATIVE (NEGATIVE); PROTEIN,URINE NEGATIVE (NEGATIVE)
[2020-11-16 20:34] LABS: BACTERIA,URINE None Seen /HPF (None Seen); WBC,URINE None Seen /HPF (0-5)
[2020-11-16 20:35] LABS: RBC,URINE 0-2 /HPF (0-2); SQUAMOUS EPITHELIAL CELL,UR None Seen /LPF (None Seen)
[2020-11-16 20:55] LABS: BASOPHILS % (AUTO) 1.8 % (0.0-2.0); EOSINOPHILS % (AUTO) 4.1 % (1.0-6.0); HEMATOCRIT 36.7 % (36-46); HEMOGLOBIN 12.2 g/dL (12.0-16.0); LYMPHOCYTES # (AUTO) 1.3 K/uL (1.0-4.8); LYMPHOCYTES % (AUTO) 36.7 % (22.0-44.0); MEAN CORPUSCULAR HEMOGLOBIN 32.6 pg (26.0-34.0); MEAN CORPUSCULAR HGB CONC 33.4 G/dL (31.0-37.0); MEAN CORPUSCULAR VOLUME 98 fL (80-100); MONOCYTES # (AUTO) 0.4 K/uL (0.1-1.0); MONOCYTES % (AUTO) 11.7 % (2.0-9.0); NEUTROPHILS # (AUTO) 1.6 K/uL (1.8-7.7); NEUTROPHILS % (AUTO) 45.7 % (40.0-70.0); PLATELET COUNT (AUTO) 222 K/uL (150-450); RED BLOOD CELL COUNT(AUTO) 3.76 MIL/uL (4.00-5.20); RED CELL DISTRIBUTION WIDTH 13.9 % (11.5-14.5)
[2020-11-16 21:07] LABS: ANION GAP 6 mmol/L (8-16); CALCIUM, TOTAL 8.5 mg/dL (8.8-10.5); CARBON DIOXIDE 28 mmol/L (22-29); CHLORIDE 101 mmol/L (98-107); CREATININE 0.89 mg/dL (0.60-1.30); GLUCOSE,RANDOM 88 mg/dL (70-110); POTASSIUM 4.5 mmol/L (3.5-5.1); SODIUM SERUM 135 mmol/L (136-145); UREA NITROGEN, BLOOD 14 mg/dL (7-18)
[2020-11-16 21:12] LABS: ALANINE AMINOTRANSFERASE 17 U/L (12-78); ALBUMIN 3.6 g/dL (3.4-5.0); ALKALINE PHOSPHATASE 77 U/L (46-116); ASPARTATE AMINOTRANSFERASE 26 U/L (15-37); BILIRUBIN,TOTAL 0.4 mg/dL (0.1-1.0); GLOMERULAR FILTR. RATE CALC > 60 mL/min (>60); LIPASE 129 U/L (73-393); TOTAL PROTEIN, SERUM 6.7 g/dL (6.4-8.2)
[2020-11-16 21:53] VITALS: BP 131/74
== END 2020-11-16 21:57 | disposition home or self-care (01) ==
LOC: EMS 18:09
DX: R10.9 Unspecified abdominal pain (principal); F31.9 Bipolar disorder, unspecified; F20.9 Schizophrenia, unspecified; Z88.0 Allergy status to penicillin
CPT/HCPCS: 71045; 74176; 80053; 81001; 83690; 84484; 85025; 93005; 99285; 36415-L1; 36415-TC

== ENCOUNTER 2020-11-17 19:53 | Inpatient (IN) | payer MEDICARE, MEDICAID ==
[~2020-11-17] VITALS: Ht 165.1 cm; Wt 64.2 kg
[2020-11-17] MEDS ORDERED: HALOPERIDOL LACTATE 5 MG/ML VIAL IM ONE (20:30)
[2020-11-17] MEDS ORDERED: DiphenhydrAMINE HCL 50 MG/ML VIAL IM ONE (20:30)
[2020-11-17] MEDS ORDERED: LORazepam 2 MG/ML VIAL IM ONE (20:30)
[2020-11-17 20:45] LABS: COVID AG,FIA SOURCE NASOPHARYNGEAL
[2020-11-18 04:57] VITALS: BP 118/65
[2020-11-18] MEDS ORDERED: CloNIDine HCL 0.1 MG TABLET PO PRN (07:45)
[2020-11-18] MEDS ORDERED: ONDANSETRON HCL 4 MG TABLET PO PRN (07:45)
[2020-11-18] MEDS ORDERED: ALBUTEROL SULFATE HFA 90 MCG/PUFF 8 GM INHALER IH PRN (07:45)
[2020-11-18] MEDS ORDERED: ACETAMINOPHEN 325 MG TABLET PO PRN (07:45)
[2020-11-18] MEDS ORDERED: PETROLATUM,WHITE 28 GM JELLY TP PRN (07:45)
[2020-11-18] MEDS ORDERED: IBUPROFEN 400 MG TABLET PO PRN (07:45)
[2020-11-18] MEDS ORDERED: GuaiFENesin/D-METHORPHAN [SUGAR-FREE] 200-20MG/10 ML SYRUP UDCUP PO PRN (07:45)
[2020-11-18] MEDS ORDERED: NICOTINE 14 MG/24 HOUR PATCH TD PRN (07:45)
[2020-11-18] MEDS ORDERED: LOPERAMIDE HCL 2 MG CAPSULE PO PRN (07:45)
[2020-11-18] MEDS ORDERED: MAGNESIUM HYDROXIDE SUSPENSION 30 ML UDCUP PO PRN (07:45)
[2020-11-18] MEDS ORDERED: DOCUSATE SODIUM 100 MG CAPSULE PO PRN (07:45)
[2020-11-18] MEDS ORDERED: HALOPERIDOL LACTATE 5 MG/ML VIAL IM ONE (08:30)
[2020-11-18] MEDS ORDERED: DiphenhydrAMINE HCL 50 MG/ML VIAL IM ONE (08:30)
[2020-11-18] MEDS ORDERED: LORazepam 2 MG/ML VIAL IM ONE (08:30)
[2020-11-18 16:05] VITALS: BP 130/67
[2020-11-18] MEDS: DIVALPROEX SODIUM 500 MG DR TABLET PO SCH (16:38)
[2020-11-18] MEDS: OLANZapine 10 MG TABLET PO SCH (20:18)
[2020-11-19 08:36] VITALS: BP 120/78
[2020-11-19] MEDS: OLANZapine 10 MG TABLET PO SCH ×2 (08:44→20:42)
[2020-11-19] MEDS: LORazepam 2 MG TABLET PO PRN (08:44)
[2020-11-19] MEDS: DIVALPROEX SODIUM 500 MG DR TABLET PO SCH ×2 (08:57→16:29)
[2020-11-19 16:35] VITALS: BP 99/68
[2020-11-20 04:50] VITALS: BP 111/67
[2020-11-20] MEDS: OLANZapine 10 MG TABLET PO SCH ×2 (08:40→21:52)
[2020-11-20] MEDS: DIVALPROEX SODIUM 500 MG DR TABLET PO SCH ×3 (08:44→22:07)
[2020-11-20 17:13] VITALS: BP 106/68
[2020-11-21 03:01] VITALS: BP 121/82
[2020-11-21 09:15] VITALS: BP 110/71
[2020-11-21] MEDS: OLANZapine 10 MG TABLET PO SCH ×2 (12:17→20:51)
[2020-11-21] MEDS: DIVALPROEX SODIUM 500 MG DR TABLET PO SCH (17:00)
[2020-11-21 18:15] VITALS: BP 126/90
[2020-11-21] MEDS ORDERED: HALOPERIDOL LACTATE 5 MG/ML VIAL IM ONE (19:15)
[2020-11-21] MEDS ORDERED: DiphenhydrAMINE HCL 50 MG/ML VIAL IM ONE (19:15)
[2020-11-22 05:11] VITALS: BP 120/75
[2020-11-22] MEDS: OLANZapine 10 MG TABLET PO SCH ×2 (08:43→19:50)
[2020-11-22] MEDS: DIVALPROEX SODIUM 500 MG DR TABLET PO SCH ×2 (08:50→17:00)
[2020-11-22 16:25] VITALS: BP 116/73
[2020-11-22] MEDS: MAG HYDROX/AL HYDROX/SIMETH ES 30 ML SUSPENSION UDCUP PO PRN (21:35)
[2020-11-23 00:15] VITALS: BP 121/64
[2020-11-23] MEDS: DIVALPROEX SODIUM 500 MG DR TABLET PO SCH ×2 (08:12→17:00)
[2020-11-23] MEDS: OLANZapine 10 MG TABLET PO SCH (08:15)
[2020-11-23 08:33] VITALS: BP 126/69
[2020-11-23 16:00] VITALS: BP 100/67
[2020-11-23] MEDS: ZIPRASIDONE HCL 60 MG CAPSULE PO SCH (17:00)
[2020-11-24] VITALS: BP 109/60
[2020-11-24] MEDS: ZIPRASIDONE HCL 60 MG CAPSULE PO SCH ×2 (06:35→17:00)
[2020-11-24 08:24] VITALS: BP 119/73
[2020-11-24] MEDS: DIVALPROEX SODIUM 500 MG DR TABLET PO SCH ×2 (08:29→17:00)
[2020-11-24 16:18] VITALS: BP 103/62
[2020-11-25 04:01] VITALS: BP 115/73
[2020-11-25] MEDS: ZIPRASIDONE HCL 60 MG CAPSULE PO SCH ×2 (07:00→16:45)
[2020-11-25 08:48] VITALS: BP 116/74
[2020-11-25] MEDS: DIVALPROEX SODIUM 500 MG DR TABLET PO SCH ×2 (09:00→09:10)
[2020-11-25 16:18] VITALS: BP 114/61
[2020-11-26 01:45] VITALS: BP 116/65
[2020-11-26] MEDS: ZIPRASIDONE HCL 60 MG CAPSULE PO SCH ×2 (06:42→17:00)
[2020-11-26] MEDS: DIVALPROEX SODIUM 500 MG DR TABLET PO SCH ×2 (08:23→17:00)
[2020-11-26 08:28] VITALS: BP 123/81
[2020-11-26 16:16] VITALS: BP 121/70
[2020-11-27] MEDS: LORazepam 2 MG TABLET PO PRN ×2 (01:45→22:49)
[2020-11-27 05:29] VITALS: BP 118/74
[2020-11-27] MEDS: ZIPRASIDONE HCL 60 MG CAPSULE PO SCH ×2 (06:32→17:00)
[2020-11-27 08:29] VITALS: BP 120/79
[2020-11-27] MEDS: DIVALPROEX SODIUM 500 MG DR TABLET PO SCH ×2 (09:00→17:00)
[2020-11-27] MEDS ORDERED: TraMADol HCL 50 MG TABLET PO PRN (14:45)
[2020-11-27 16:16] VITALS: BP 117/75
[2020-11-27 17:02] LABS: GLUCOMETER DEV NAME(LOC) BV3S.; GLUCOSE,POINT OF CARE 102 MG/DL (70-110)
[2020-11-28 01:16] VITALS: BP 120/74
[2020-11-28] MEDS: ZIPRASIDONE HCL 60 MG CAPSULE PO SCH ×2 (06:09→17:00)
[2020-11-28] MEDS: DIVALPROEX SODIUM 500 MG DR TABLET PO SCH ×2 (08:08→17:00)
[2020-11-28 08:13] VITALS: BP 128/74
[2020-11-28 16:10] VITALS: BP 130/79
[2020-11-29 01:00] VITALS: BP 129/81
[2020-11-29] MEDS: ZIPRASIDONE HCL 60 MG CAPSULE PO SCH ×3 (07:00→17:00)
[2020-11-29 08:29] VITALS: BP 146/95
[2020-11-29] MEDS: DIVALPROEX SODIUM 500 MG DR TABLET PO SCH ×3 (08:34→17:00)
[2020-11-29 16:16] VITALS: BP 123/62
[2020-11-29] MEDS: LORazepam 2 MG TABLET PO PRN (22:41)
[2020-11-30 01:38] VITALS: BP 124/65
[2020-11-30] MEDS: ZIPRASIDONE HCL 60 MG CAPSULE PO SCH ×2 (07:00→16:44)
[2020-11-30] MEDS: DIVALPROEX SODIUM 500 MG DR TABLET PO SCH ×3 (09:00→16:43)
[2020-11-30 16:29] VITALS: BP 112/64
[2020-12-01] MEDS: LORazepam 2 MG TABLET PO PRN ×2 (01:05→22:04)
[2020-12-01 03:14] VITALS: BP 126/78
[2020-12-01] MEDS: ZIPRASIDONE HCL 60 MG CAPSULE PO SCH ×2 (05:40→16:48)
[2020-12-01] MEDS: DIVALPROEX SODIUM 500 MG DR TABLET PO SCH ×2 (08:08→16:48)
[2020-12-01 08:26] VITALS: BP 110/66
[2020-12-01 16:17] VITALS: BP 118/71
[2020-12-02] MEDS: ZIPRASIDONE HCL 60 MG CAPSULE PO SCH ×2 (06:10→17:00)
[2020-12-02 06:40] VITALS: BP 136/78
[2020-12-02] MEDS: DIVALPROEX SODIUM 500 MG DR TABLET PO SCH ×2 (09:00→17:00)
[2020-12-02 16:19] VITALS: BP 110/73
[2020-12-02] MEDS: LORazepam 2 MG TABLET PO PRN (21:07)
[2020-12-03 04:25] VITALS: BP 112/71
[2020-12-03] MEDS: ZIPRASIDONE HCL 60 MG CAPSULE PO SCH ×2 (06:12→16:42)
[2020-12-03] MEDS: DIVALPROEX SODIUM 500 MG DR TABLET PO SCH ×2 (09:00→16:42)
[2020-12-03 16:22] VITALS: BP 135/68
[2020-12-03] MEDS: LORazepam 2 MG TABLET PO PRN (21:47)
[2020-12-04 02:31] VITALS: BP 117/66
[2020-12-04] MEDS: ZIPRASIDONE HCL 60 MG CAPSULE PO SCH ×2 (06:13→16:39)
[2020-12-04 08:45] VITALS: BP 117/74
[2020-12-04] MEDS: DIVALPROEX SODIUM 500 MG DR TABLET PO SCH ×2 (08:50→16:39)
[2020-12-04 16:28] VITALS: BP 100/63
[2020-12-04] MEDS: LORazepam 2 MG TABLET PO PRN (21:52)
[2020-12-05 04:30] VITALS: BP 108/62
[2020-12-05] MEDS: ZIPRASIDONE HCL 60 MG CAPSULE PO SCH ×2 (06:09→16:48)
[2020-12-05] MEDS: DIVALPROEX SODIUM 500 MG DR TABLET PO SCH ×2 (09:00→16:48)
[2020-12-05 16:13] VITALS: BP 116/73
[2020-12-06 04:10] VITALS: BP 137/80
[2020-12-06] MEDS: ZIPRASIDONE HCL 60 MG CAPSULE PO SCH ×2 (06:45→19:19)
[2020-12-06] MEDS: DIVALPROEX SODIUM 500 MG DR TABLET PO SCH ×2 (08:28→19:19)
[2020-12-06 16:20] VITALS: BP 109/70
[2020-12-06] MEDS: LORazepam 2 MG TABLET PO PRN (22:09)
[2020-12-07 01:01] VITALS: BP 112/63
[2020-12-07] MEDS: ZIPRASIDONE HCL 60 MG CAPSULE PO SCH ×2 (06:32→17:00)
[2020-12-07] MEDS: DIVALPROEX SODIUM 500 MG DR TABLET PO SCH ×2 (08:49→17:00)
[2020-12-07 16:27] VITALS: BP 142/70
[2020-12-07] MEDS: LORazepam 2 MG TABLET PO PRN (22:07)
[2020-12-08 03:11] VITALS: BP 124/78
[2020-12-08] MEDS: ZIPRASIDONE HCL 60 MG CAPSULE PO SCH ×2 (06:09→15:32)
[2020-12-08 08:11] VITALS: BP 108/64
[2020-12-08] MEDS: DIVALPROEX SODIUM 500 MG DR TABLET PO SCH ×2 (09:00→15:32)
[2020-12-08] MEDS: LORazepam 2 MG TABLET PO PRN ×2 (09:42→21:55)
[2020-12-08 16:34] VITALS: BP 117/78
[2020-12-09 00:39] VITALS: BP 120/76
[2020-12-09] MEDS: ZIPRASIDONE HCL 60 MG CAPSULE PO SCH ×2 (07:00→17:36)
[2020-12-09] MEDS: DIVALPROEX SODIUM 500 MG DR TABLET PO SCH ×2 (09:00→17:00)
[2020-12-09 16:20] VITALS: BP 113/63
[2020-12-10 05:30] VITALS: BP 128/81
[2020-12-10] MEDS: ZIPRASIDONE HCL 60 MG CAPSULE PO SCH ×2 (06:35→16:13)
[2020-12-10] MEDS: DIVALPROEX SODIUM 500 MG DR TABLET PO SCH ×2 (09:00→16:13)
[2020-12-10] MEDS: ChlorproMAZINE HCL 50 MG/2 ML AMP IM PRN ×2 (11:56→16:40)
[2020-12-10 16:41] VITALS: BP 129/76
[2020-12-10] MEDS ORDERED: DiphenhydrAMINE HCL 50 MG/ML VIAL IM ONE (18:45)
[2020-12-10] MEDS ORDERED: DiphenhydrAMINE HCL 50 MG/ML VIAL ONE (18:46)
[2020-12-10] MEDS: LORazepam 2 MG TABLET PO PRN (22:01)
[2020-12-11 00:28] VITALS: BP 122/74
[2020-12-11] MEDS ORDERED: HALOPERIDOL LACTATE 5 MG/ML VIAL IM PRN (05:00)
[2020-12-11] MEDS: ZIPRASIDONE HCL 60 MG CAPSULE PO SCH (06:28)
[2020-12-11 08:34] VITALS: BP 145/77
[2020-12-11] MEDS: OLANZapine 5 MG TABLET PO SCH ×2 (09:00→17:43)
[2020-12-11] MEDS: DIVALPROEX SODIUM 500 MG DR TABLET PO SCH ×2 (09:00→17:43)
[2020-12-11] MEDS ORDERED: LORazepam 2 MG/ML VIAL ONE (13:56)
[2020-12-11] MEDS ORDERED: DiphenhydrAMINE HCL 50 MG/ML VIAL ONE (13:57)
[2020-12-11] MEDS ORDERED: DiphenhydrAMINE HCL 50 MG/ML VIAL IM ONE (14:30)
[2020-12-11] MEDS ORDERED: HALOPERIDOL LACTATE 5 MG/ML VIAL IM ONE (14:30)
[2020-12-11] MEDS ORDERED: LORazepam 2 MG/ML VIAL IM ONE (14:30)
[2020-12-11 17:14] VITALS: BP 123/74
[2020-12-12 05:10] VITALS: BP 116/68
[2020-12-12] MEDS: OLANZapine 5 MG TABLET PO SCH ×2 (08:14→17:03)
[2020-12-12] MEDS: DIVALPROEX SODIUM 500 MG DR TABLET PO SCH ×2 (08:14→17:03)
[2020-12-12 17:06] VITALS: BP 105/68
[2020-12-12] MEDS: MAG HYDROX/AL HYDROX/SIMETH ES 30 ML SUSPENSION UDCUP PO PRN (20:00)
[2020-12-12] MEDS: LORazepam 2 MG TABLET PO PRN (22:12)
[2020-12-13 05:30] VITALS: BP 108/68
[2020-12-13] MEDS: DIVALPROEX SODIUM 500 MG DR TABLET PO SCH ×2 (09:39→17:07)
[2020-12-13] MEDS: OLANZapine 5 MG TABLET PO SCH ×2 (09:39→17:07)
[2020-12-13 10:14] VITALS: BP 114/57
[2020-12-13 16:22] VITALS: BP 119/66
[2020-12-14 05:28] VITALS: BP 116/64
[2020-12-14] MEDS: DIVALPROEX SODIUM 500 MG DR TABLET PO SCH ×2 (08:20→16:33)
[2020-12-14] MEDS: OLANZapine 5 MG TABLET PO SCH ×2 (08:20→16:33)
[2020-12-14 16:21] VITALS: BP 110/69
[2020-12-14] MEDS: LORazepam 2 MG TABLET PO PRN (23:02)
[2020-12-15 01:03] VITALS: BP 105/56
[2020-12-15] MEDS ORDERED: DiphenhydrAMINE HCL 50 MG/ML VIAL IM ONE (08:15)
[2020-12-15] MEDS ORDERED: LORazepam 2 MG/ML VIAL IM ONE (08:15)
[2020-12-15] MEDS ORDERED: HALOPERIDOL LACTATE 5 MG/ML VIAL IM ONE (08:15)
[2020-12-15] MEDS: OLANZapine 5 MG TABLET PO SCH ×2 (14:07→17:18)
[2020-12-15] MEDS: DIVALPROEX SODIUM 500 MG DR TABLET PO SCH ×2 (14:07→17:18)
[2020-12-15 16:30] VITALS: BP 127/71
[2020-12-15] MEDS: LORazepam 2 MG TABLET PO PRN (22:13)
[2020-12-16 06:14] VITALS: BP 118/70
[2020-12-16] MEDS: DIVALPROEX SODIUM 500 MG DR TABLET PO SCH ×2 (08:46→16:17)
[2020-12-16] MEDS: OLANZapine 5 MG TABLET PO SCH ×2 (08:46→16:17)
[2020-12-16 16:22] VITALS: BP 106/62
[2020-12-16] MEDS: LORazepam 2 MG TABLET PO PRN (22:00)
[2020-12-17] MEDS: DIVALPROEX SODIUM 500 MG DR TABLET PO SCH ×2 (08:00→16:10)
[2020-12-17] MEDS: OLANZapine 5 MG TABLET PO SCH ×2 (08:00→16:10)
[2020-12-17 08:12] VITALS: BP 138/79
[2020-12-17 16:12] VITALS: BP 130/68
[2020-12-17] MEDS: LORazepam 2 MG TABLET PO PRN (22:07)
[2020-12-18 00:40] VITALS: BP 116/80
[2020-12-18] MEDS: DIVALPROEX SODIUM 500 MG DR TABLET PO SCH ×2 (08:14→16:16)
[2020-12-18] MEDS: OLANZapine 5 MG TABLET PO SCH ×2 (08:14→16:16)
[2020-12-18 08:19] VITALS: BP 118/75
[2020-12-18 16:29] VITALS: BP 112/65
[2020-12-18] MEDS: LORazepam 2 MG TABLET PO PRN (22:06)
[2020-12-19 05:02] VITALS: BP 121/62
[2020-12-19] MEDS: DIVALPROEX SODIUM 500 MG DR TABLET PO SCH ×2 (08:11→17:16)
[2020-12-19] MEDS: OLANZapine 5 MG TABLET PO SCH ×2 (08:11→17:16)
[2020-12-19 08:29] VITALS: BP 123/63
[2020-12-19 16:28] VITALS: BP 107/74
[2020-12-19] MEDS: ZOLPIDEM TARTRATE 10 MG TABLET PO PRN ×2 (22:45→23:00)
[2020-12-19] MEDS: LORazepam 2 MG TABLET PO PRN (22:52)
[2020-12-20 00:57] VITALS: BP 108/69
[2020-12-20] MEDS: DIVALPROEX SODIUM 500 MG DR TABLET PO SCH ×2 (08:30→17:19)
[2020-12-20] MEDS: OLANZapine 5 MG TABLET PO SCH ×2 (08:30→17:19)
[2020-12-20 08:41] VITALS: BP 103/61
[2020-12-20 09:00] VITALS: BP 108/68
[2020-12-20 16:24] VITALS: BP 118/70
[2020-12-20] MEDS: MAG HYDROX/AL HYDROX/SIMETH ES 30 ML SUSPENSION UDCUP PO PRN (20:19)
[2020-12-20] MEDS: LORazepam 2 MG TABLET PO PRN (22:20)
[2020-12-21 06:16] VITALS: BP 112/71
[2020-12-21] MEDS: DIVALPROEX SODIUM 500 MG DR TABLET PO SCH ×2 (08:34→17:35)
[2020-12-21] MEDS: OLANZapine 5 MG TABLET PO SCH ×2 (08:34→17:35)
[2020-12-21 08:41] VITALS: BP 111/71
[2020-12-21 17:04] VITALS: BP 104/77
[2020-12-21] MEDS: LORazepam 2 MG TABLET PO PRN (22:53)
[2020-12-22 06:13] VITALS: BP 108/72
[2020-12-22 08:26] VITALS: BP 121/79
[2020-12-22] MEDS: OLANZapine 5 MG TABLET PO SCH ×2 (08:34→16:33)
[2020-12-22] MEDS: DIVALPROEX SODIUM 500 MG DR TABLET PO SCH ×2 (08:34→16:33)
[2020-12-22 16:22] VITALS: BP 119/74
[2020-12-22] MEDS: MAG HYDROX/AL HYDROX/SIMETH ES 30 ML SUSPENSION UDCUP PO PRN (16:50)
[2020-12-22] MEDS: LORazepam 2 MG TABLET PO PRN (22:07)
[2020-12-23 06:02] VITALS: BP 122/77
[2020-12-23 08:30] VITALS: BP 136/77
[2020-12-23] MEDS: LORazepam 2 MG TABLET PO PRN (10:50)
[2020-12-23] MEDS: DIVALPROEX SODIUM 500 MG DR TABLET PO SCH ×2 (10:50→16:26)
[2020-12-23] MEDS: OLANZapine 5 MG TABLET PO SCH ×2 (10:50→16:26)
[2020-12-23 16:22] VITALS: BP 104/60
[2020-12-24 05:45] VITALS: BP 110/66
[2020-12-24] MEDS: DIVALPROEX SODIUM 500 MG DR TABLET PO SCH ×2 (08:14→17:13)
[2020-12-24] MEDS: OLANZapine 5 MG TABLET PO SCH ×2 (08:14→17:13)
[2020-12-24 16:17] VITALS: BP 118/64
[2020-12-24] MEDS: LORazepam 2 MG TABLET PO PRN (22:08)
[2020-12-25 05:00] VITALS: BP 114/62
[2020-12-25] MEDS: OLANZapine 5 MG TABLET PO SCH ×2 (08:50→17:36)
[2020-12-25] MEDS: DIVALPROEX SODIUM 500 MG DR TABLET PO SCH ×2 (08:50→17:36)
[2020-12-25 16:22] VITALS: BP 99/64
[2020-12-25] MEDS: LORazepam 2 MG TABLET PO PRN (21:58)
[2020-12-26] MEDS: OLANZapine 5 MG TABLET PO SCH (09:29)
[2020-12-26] MEDS: DIVALPROEX SODIUM 500 MG DR TABLET PO SCH ×2 (09:29→16:48)
[2020-12-26 16:23] VITALS: BP 114/75
[2020-12-26] MEDS: OLANZapine 7.5 MG TABLET PO SCH (16:48)
[2020-12-26] MEDS: LORazepam 2 MG TABLET PO PRN (21:49)
[2020-12-27 00:06] VITALS: BP 116/74
[2020-12-27] MEDS: OLANZapine 7.5 MG TABLET PO SCH ×2 (08:43→16:19)
[2020-12-27] MEDS: DIVALPROEX SODIUM 500 MG DR TABLET PO SCH ×2 (08:43→16:19)
[2020-12-27 09:37] VITALS: BP 143/78
[2020-12-27 16:33] VITALS: BP 137/83
[2020-12-27] MEDS: MAG HYDROX/AL HYDROX/SIMETH ES 30 ML SUSPENSION UDCUP PO PRN (23:01)
[2020-12-28 00:32] VITALS: BP 135/82
[2020-12-28 08:35] VITALS: BP 108/63
[2020-12-28] MEDS: DIVALPROEX SODIUM 500 MG DR TABLET PO SCH ×2 (08:55→16:38)
[2020-12-28] MEDS: OLANZapine 7.5 MG TABLET PO SCH ×2 (08:55→16:38)
[2020-12-28] MEDS: HALOPERIDOL 5 MG TABLET PO PRN ×2 (08:55→10:58)
[2020-12-28 16:18] VITALS: BP 117/68
[2020-12-28] MEDS: LORazepam 2 MG TABLET PO PRN (21:53)
[2020-12-29 05:06] VITALS: BP 116/64
[2020-12-29] MEDS: DIVALPROEX SODIUM 500 MG DR TABLET PO SCH (09:15)
[2020-12-29] MEDS: OLANZapine 7.5 MG TABLET PO SCH (09:15)
[2020-12-29] MEDS ORDERED: DIVA125T2 PO (12:28)
[2020-12-29] MEDS ORDERED: OLAN7.5T22 PO (12:28)
== END 2020-12-29 13:20 | disposition home or self-care (01) | DRG 750 ==
LOC: EMS 19:58 → B3A 11-18 02:00
PROVIDERS: ADMIT Psychiatry & Neurology Child & Adolescent Psychiatry; ATTEND Psychiatry & Neurology Child & Adolescent Psychiatry
DX: F20.0 Paranoid schizophrenia (principal); E44.0 Moderate protein-calorie malnutrition; D64.9 Anemia, unspecified; Z59.0 Homelessness; M10.9 Gout, unspecified; Z88.0 Allergy status to penicillin; Z68.23 Body mass index [BMI] 23.0-23.9, adult; F41.9 Anxiety disorder, unspecified; Z20.822 Contact with and (suspected) exposure to COVID-19
CPT/HCPCS: 82962; 99285; J1200; J1630; J2060; J3230

== ENCOUNTER 2021-01-07 21:55 | Emergency (ER) | payer MEDICARE, OTHER ==
[~2021-01-07] VITALS: Ht 165.1 cm; Wt 64.0 kg
[~2021-01-07 21:55] MED LIST changes: +DIVA125T2 PO; +OLAN7.5T22 PO; -SENN1TAB72 PO
[2021-01-07 23:54] LABS: APPEARANCE,URINE CLEAR (CLEAR); BILIRUBIN,URINE NEGATIVE (NEGATIVE); GLUCOSE, URINE (UA) NEGATIVE (NEGATIVE); KETONES,URINE NEGATIVE (NEGATIVE); LEUKOCYTE ESTERASE ,URINE NEGATIVE (NEGATIVE); NITRATE,URINE NEGATIVE (NEGATIVE); OCCULT BLOOD,URINE TRACE (NEGATIVE); PROTEIN,URINE NEGATIVE (NEGATIVE); UROBILINOGEN,URINE 0.2 mg/dL (<=1.0)
[2021-01-08 00:01] LABS: BACTERIA,URINE None Seen /HPF (None Seen); RBC,URINE 0-2 /HPF (0-2); SQUAMOUS EPITHELIAL CELL,UR Rare /LPF (None Seen); WBC,URINE None Seen /HPF (0-5)
[2021-01-08 00:36] VITALS: BP 116/75
== END 2021-01-08 02:23 | disposition home or self-care (01) ==
LOC: EMS 21:58
DX: N39.0 Urinary tract infection, site not specified (principal); F20.9 Schizophrenia, unspecified
CPT/HCPCS: 81001; 99283

== ENCOUNTER 2021-01-08 16:08 | Inpatient (IN) | payer MEDICARE, MEDICAID ==
[~2021-01-08] VITALS: Ht 165.1 cm; Wt 61.9 kg
[2021-01-08] MEDS ORDERED: HALOPERIDOL 5 MG TABLET PO PRN (17:30)
[2021-01-08] MEDS ORDERED: LORazepam 2 MG TABLET PO PRN (17:30)
[2021-01-08] MEDS ORDERED: ZOLPIDEM TARTRATE 10 MG TABLET PO PRN (17:30)
[2021-01-09] MEDS ORDERED: ACETAMINOPHEN 325 MG TABLET PO PRN (07:30)
[2021-01-09] MEDS ORDERED: MAG HYDROX/AL HYDROX/SIMETH ES 30 ML SUSPENSION UDCUP PO PRN (07:30)
[2021-01-09] MEDS ORDERED: DOCUSATE SODIUM 100 MG CAPSULE PO PRN (07:30)
[2021-01-09] MEDS ORDERED: GuaiFENesin/D-METHORPHAN [SUGAR-FREE] 200-20MG/10 ML SYRUP UDCUP PO PRN (07:30)
[2021-01-09] MEDS ORDERED: LOPERAMIDE HCL 2 MG CAPSULE PO PRN (07:30)
[2021-01-09] MEDS ORDERED: CloNIDine HCL 0.1 MG TABLET PO PRN (07:30)
[2021-01-09] MEDS ORDERED: MAGNESIUM HYDROXIDE SUSPENSION 30 ML UDCUP PO PRN (07:30)
[2021-01-09] MEDS ORDERED: IBUPROFEN 400 MG TABLET PO PRN (07:30)
[2021-01-09] MEDS ORDERED: PETROLATUM,WHITE 28 GM JELLY TP PRN (07:30)
[2021-01-09] MEDS ORDERED: NICOTINE 14 MG/24 HOUR PATCH TD PRN (07:30)
[2021-01-09] MEDS ORDERED: ALBUTEROL SULFATE HFA 90 MCG/PUFF 8 GM INHALER IH PRN (07:30)
[2021-01-09] MEDS ORDERED: ONDANSETRON HCL 4 MG TABLET PO PRN (07:30)
[2021-01-09 08:13] VITALS: BP 123/71
[2021-01-09] MEDS ORDERED: OLANZapine 7.5 MG TABLET PO SCH ×2 (10:30→21:00)
[2021-01-09] MEDS ORDERED: DIVALPROEX SODIUM 125 MG DR TABLET PO SCH ×2 (10:30→17:00)
[2021-01-09 23:20] VITALS: BP 132/78
[2021-01-10 00:43] VITALS: BP 108/66
[2021-01-10 07:38] LABS: BASOPHILS % (AUTO) 1.8 % (0.0-2.0); EOSINOPHILS % (AUTO) 7.1 % (1.0-6.0); HEMATOCRIT 36.9 % (36-46); HEMOGLOBIN 12.4 g/dL (12.0-16.0); LYMPHOCYTES # (AUTO) 1.2 K/uL (1.0-4.8); LYMPHOCYTES % (AUTO) 44.5 % (22.0-44.0); MEAN CORPUSCULAR HEMOGLOBIN 32.4 pg (26.0-34.0); MEAN CORPUSCULAR HGB CONC 33.5 G/dL (31.0-37.0); MEAN CORPUSCULAR VOLUME 97 fL (80-100); MONOCYTES # (AUTO) 0.4 K/uL (0.1-1.0); MONOCYTES % (AUTO) 15.8 % (2.0-9.0); NEUTROPHILS # (AUTO) 0.8 K/uL (1.8-7.7); NEUTROPHILS % (AUTO) 30.8 % (40.0-70.0); PLATELET COUNT (AUTO) 154 K/uL (150-450); RED BLOOD CELL COUNT(AUTO) 3.82 MIL/uL (4.00-5.20); RED CELL DISTRIBUTION WIDTH 14.1 % (11.5-14.5)
[2021-01-10 07:48] LABS: HEMOGLOBIN A1C 5.2 % (3.8-5.6)
[2021-01-10 08:05] VITALS: BP 110/69
[2021-01-10 08:26] LABS: ALANINE AMINOTRANSFERASE 19 U/L (12-78); ALBUMIN 2.8 g/dL (3.4-5.0); ALKALINE PHOSPHATASE 58 U/L (46-116); ANION GAP 12 mmol/L (8-16); ASPARTATE AMINOTRANSFERASE 18 U/L (15-37); BILIRUBIN,TOTAL 0.4 mg/dL (0.1-1.0); CALCIUM, TOTAL 8.1 mg/dL (8.8-10.5); CARBON DIOXIDE 26 mmol/L (22-29); CHLORIDE 107 mmol/L (98-107); CREATININE 0.78 mg/dL (0.60-1.30); FREE T4 (FREE THYROXINE) 0.93 ng/dL (0.76-1.46); GLUCOSE,RANDOM 79 mg/dL (70-110); HDL CHOLESTEROL 65 mg/dL (40-60); POTASSIUM 4.2 mmol/L (3.5-5.1); SODIUM SERUM 145 mmol/L (136-145); THYROID STIMULATING HORMONE 1.14 uIU/mL (0.36-3.74); TOTAL PROTEIN, SERUM 5.8 g/dL (6.4-8.2); TRIGLYCERIDES 26 mg/dL (15-150); UREA NITROGEN, BLOOD 21 mg/dL (7-18)
[2021-01-10 08:35] LABS: CHOL/HDL RATIO 2.2 (3.9-5.7); CHOLESTEROL 145 mg/dL (131-200); LDL CHOL (CALC.) 75 mg/dL (0-130)
[2021-01-10 08:36] LABS: GLOMERULAR FILTR. RATE CALC > 60 mL/min (>60)
[2021-01-10] MEDS ORDERED: OLANZapine 7.5 MG TABLET PO SCH (09:00)
[2021-01-10 16:17] VITALS: BP 105/61
[2021-01-10] MEDS: DIVALPROEX SODIUM 250 MG DR TABLET PO SCH (21:00)
[2021-01-10] MEDS: OLANZapine 7.5 MG TABLET PO SCH (21:46)
[2021-01-11 00:21] VITALS: BP 121/74
[2021-01-11 06:48] LABS: APPEARANCE,URINE CLEAR (CLEAR); BILIRUBIN,URINE NEGATIVE (NEGATIVE); GLUCOSE, URINE (UA) NEGATIVE (NEGATIVE); KETONES,URINE NEGATIVE (NEGATIVE); LEUKOCYTE ESTERASE ,URINE MODERATE (NEGATIVE); NITRATE,URINE NEGATIVE (NEGATIVE); OCCULT BLOOD,URINE TRACE (NEGATIVE); PH,URINE 5.5 (5.0-8.0); PROTEIN,URINE NEGATIVE (NEGATIVE); UROBILINOGEN,URINE 0.2 mg/dL (<=1.0)
[2021-01-11 07:24] LABS: AMPHET/METH SCREEN,URINE NEGATIVE (NEGATIVE); BARBITURATE SCREEN, URINE NEGATIVE (NEGATIVE); BENZODIAZEPINES SCREEN,URINE NEGATIVE (NEGATIVE); CANNABINOID SCREEN,URINE NEGATIVE (NEGATIVE); COCAINE SCREEN,URINE NEGATIVE (NEGATIVE); METHADONE SCREEN, URINE NEGATIVE (NEGATIVE); OPIATE SCREEN,URINE NEGATIVE (NEGATIVE)
[2021-01-11 07:33] LABS: PHENCYCLIDINE SCREEN,URINE NEGATIVE (NEGATIVE)
[2021-01-11 07:57] LABS: BACTERIA,URINE None Seen /HPF (None Seen); RBC,URINE 0-2 /HPF (0-2); SQUAMOUS EPITHELIAL CELL,UR Few /LPF (None Seen)
[2021-01-11 08:09] VITALS: BP 121/67
[2021-01-11 16:25] VITALS: BP 123/86
[2021-01-11] MEDS: DIVALPROEX SODIUM 250 MG DR TABLET PO SCH (21:00)
[2021-01-11] MEDS: OLANZapine 7.5 MG TABLET PO SCH (21:44)
[2021-01-12 02:43] VITALS: BP 134/68
[2021-01-12 08:28] VITALS: BP 118/70
[2021-01-12 16:41] VITALS: BP 134/61
[2021-01-12] MEDS: DIVALPROEX SODIUM 250 MG DR TABLET PO SCH (21:00)
[2021-01-12] MEDS: OLANZapine 7.5 MG TABLET PO SCH (21:58)
[2021-01-13 00:05] VITALS: BP 131/79
[2021-01-13 08:45] VITALS: BP 109/62
[2021-01-13] MEDS ORDERED: DIVA-111 PO (11:16)
[2021-01-13] MEDS ORDERED: OLAN7.5T22 PO (11:17)
[2021-01-13 16:17] VITALS: BP 116/62
== END 2021-01-13 18:37 | disposition home or self-care (01) | DRG 750 ==
LOC: B2S 17:24
PROVIDERS: ADMIT Psychiatry & Neurology Child & Adolescent Psychiatry; ATTEND Psychiatry & Neurology Child & Adolescent Psychiatry
DX: F20.0 Paranoid schizophrenia (principal); E44.0 Moderate protein-calorie malnutrition; D64.9 Anemia, unspecified; M10.9 Gout, unspecified; F41.9 Anxiety disorder, unspecified; Z79.899 Other long term (current) drug therapy; Z88.0 Allergy status to penicillin; Z68.22 Body mass index [BMI] 22.0-22.9, adult
CPT/HCPCS: 80053; 80061; 80307; 81001; 83036; 84439; 84443; 85025; 87081

== ENCOUNTER 2021-01-15 04:22 | Emergency (ER) | payer MEDICARE, OTHER ==
[~2021-01-15] VITALS: Ht 165.1 cm; Wt 59.1 kg
[~2021-01-15 04:22] MED LIST changes: +DIVA-111 PO; -DIVA125T2 PO
[2021-01-15 04:49] LABS: BASOPHILS % (AUTO) 1.8 % (0.0-2.0); HEMATOCRIT 38.1 % (36-46); HEMOGLOBIN 12.7 g/dL (12.0-16.0); LYMPHOCYTES # (AUTO) 1.4 K/uL (1.0-4.8); LYMPHOCYTES % (AUTO) 36.7 % (22.0-44.0); MEAN CORPUSCULAR HEMOGLOBIN 32.4 pg (26.0-34.0); MEAN CORPUSCULAR HGB CONC 33.3 G/dL (31.0-37.0); MEAN CORPUSCULAR VOLUME 97 fL (80-100); MONOCYTES # (AUTO) 0.5 K/uL (0.1-1.0); MONOCYTES % (AUTO) 12.3 % (2.0-9.0); NEUTROPHILS # (AUTO) 1.7 K/uL (1.8-7.7); NEUTROPHILS % (AUTO) 43.2 % (40.0-70.0); PLATELET COUNT (AUTO) 145 K/uL (150-450); RED BLOOD CELL COUNT(AUTO) 3.92 MIL/uL (4.00-5.20); RED CELL DISTRIBUTION WIDTH 13.8 % (11.5-14.5)
[2021-01-15 04:59] LABS: ANION GAP 5 mmol/L (8-16); CALCIUM, TOTAL 8.5 mg/dL (8.8-10.5); CARBON DIOXIDE 26 mmol/L (22-29); CHLORIDE 103 mmol/L (98-107); CREATININE 0.91 mg/dL (0.60-1.30); GLUCOSE,RANDOM 91 mg/dL (70-110); SODIUM SERUM 134 mmol/L (136-145); UREA NITROGEN, BLOOD 23 mg/dL (7-18)
[2021-01-15 05:04] LABS: ALANINE AMINOTRANSFERASE 20 U/L (12-78); ALBUMIN 3.4 g/dL (3.4-5.0); ALKALINE PHOSPHATASE 69 U/L (46-116); ASPARTATE AMINOTRANSFERASE 22 U/L (15-37); BILIRUBIN,TOTAL 0.8 mg/dL (0.1-1.0); TOTAL PROTEIN, SERUM 6.8 g/dL (6.4-8.2)
[2021-01-15 05:12] LABS: GLOMERULAR FILTR. RATE CALC > 60 mL/min (>60)
[2021-01-15 05:44] LABS: COVID AG,FIA SOURCE NASAL SWAB
[2021-01-15 05:48] VITALS: BP 125/75
[2021-01-15 05:58] LABS: APPEARANCE,URINE CLEAR (CLEAR); BILIRUBIN,URINE NEGATIVE (NEGATIVE); GLUCOSE, URINE (UA) NEGATIVE (NEGATIVE); KETONES,URINE NEGATIVE (NEGATIVE); LEUKOCYTE ESTERASE ,URINE SMALL (NEGATIVE); NITRATE,URINE NEGATIVE (NEGATIVE); OCCULT BLOOD,URINE TRACE (NEGATIVE); PH,URINE 6.5 (5.0-8.0); PROTEIN,URINE NEGATIVE (NEGATIVE); UROBILINOGEN,URINE 0.2 mg/dL (<=1.0)
[2021-01-15 06:16] LABS: INFLUENZA TYPE A NEGATIVE FOR TYPE A (NEGATIVE); INFLUENZA TYPE B NEGATIVE FOR TYPE B (NEGATIVE)
[2021-01-15 07:15] LABS: BACTERIA,URINE Rare /HPF (None Seen); RBC,URINE 0-2 /HPF (0-2); WBC,URINE 0-2 /HPF (0-5)
== END 2021-01-15 06:19 | disposition home or self-care (01) ==
LOC: EMS 04:24
DX: J40 Bronchitis, not specified as acute or chronic (principal); D72.819 Decreased white blood cell count, unspecified; Z20.822 Contact with and (suspected) exposure to COVID-19; F31.9 Bipolar disorder, unspecified
CPT/HCPCS: 71045; 80053; 81001; 85025; 87804; 99284; 36415-L1; 36415-TC

== ENCOUNTER 2021-01-28 20:58 | Emergency (ER) | payer MEDICARE, OTHER ==
[~2021-01-28] VITALS: Ht 165.1 cm; Wt 62.7 kg
[2021-01-29 00:03] VITALS: BP 98/65
[2021-01-29] MEDS ORDERED: MECLIZINE HCL 25 MG TABLET PO ONE (01:00)
== END 2021-01-29 01:17 | disposition home or self-care (01) ==
LOC: EMS 21:00
DX: R42 Dizziness and giddiness (principal); F41.9 Anxiety disorder, unspecified; F31.9 Bipolar disorder, unspecified; F20.9 Schizophrenia, unspecified; Z88.0 Allergy status to penicillin
CPT/HCPCS: 99282; 99283

== ENCOUNTER 2021-03-30 14:41 | Emergency (ER) | payer MEDICARE, OTHER ==
[~2021-03-30] VITALS: Ht 170.2 cm; Wt 63.6 kg
[2021-03-30 14:47] VITALS: BP 93/52
== END 2021-03-30 15:19 | disposition left against medical advice (07) ==
LOC: EMS 14:41
DX: Z20.822 Contact with and (suspected) exposure to COVID-19 (principal); Z53.21 Procedure and treatment not carried out due to patient leaving prior to being seen by health care provider

== ENCOUNTER 2021-04-16 13:03 | Emergency (ER) | payer MEDICARE, OTHER ==
[~2021-04-16] VITALS: Ht 165.1 cm; Wt 57.0 kg
[2021-04-16 13:15] VITALS: BP 103/62
== END 2021-04-16 13:51 | disposition left against medical advice (07) ==
LOC: EMS 13:10
DX: J02.9 Acute pharyngitis, unspecified (principal); F41.9 Anxiety disorder, unspecified; F31.9 Bipolar disorder, unspecified; F20.9 Schizophrenia, unspecified; Z88.0 Allergy status to penicillin
CPT/HCPCS: 99281; Z7502

== ENCOUNTER 2021-11-11 22:02 | Emergency (ER) | payer MEDICARE, OTHER ==
[~2021-11-11] VITALS: Ht 165.1 cm; Wt 59.0 kg
[~2021-11-11 22:02] MED LIST changes: -DIVA-111 PO; +OLAN10TA74 PO; -OLAN7.5T22 PO
[2021-11-11] MEDS ORDERED: OLANZapine 5 MG TABLET PO ONE (23:30)
[2021-11-11 23:45] LABS: COVID AG,FIA SOURCE NASOPHARYNGEAL
[2021-11-12 00:08] LABS: INFLUENZA TYPE A NEGATIVE FOR TYPE A (NEGATIVE); INFLUENZA TYPE B NEGATIVE FOR TYPE B (NEGATIVE)
[2021-11-12] MEDS ORDERED: OLAN10TA74 PO (00:49)
[2021-11-12 01:02] VITALS: BP 112/75
== END 2021-11-12 01:07 | disposition home or self-care (01) ==
LOC: EMS 22:11
DX: B34.9 Viral infection, unspecified (principal); F41.9 Anxiety disorder, unspecified; F31.9 Bipolar disorder, unspecified; F20.9 Schizophrenia, unspecified; Z20.822 Contact with and (suspected) exposure to COVID-19; Z88.0 Allergy status to penicillin
CPT/HCPCS: 87426; 87804; 99283; U0003

== ENCOUNTER 2021-11-27 23:26 | Emergency (ER) | payer MEDICARE, OTHER ==
[~2021-11-27] VITALS: Ht 167.6 cm; Wt 68.2 kg
[2021-11-28 00:31] LABS: GLUCOMETER DEV NAME(LOC) ERT.5; GLUCOSE,POINT OF CARE 104 MG/DL (70-110)
[2021-11-28] MEDS ORDERED: HALOPERIDOL 5 MG TABLET PO ONE (00:45)
[2021-11-28 00:47] LABS: BASOPHILS % (AUTO) 1.6 % (0.0-2.0); EOSINOPHILS % (AUTO) 3.5 % (1.0-6.0); HEMOGLOBIN 11.5 g/dL (12.0-16.0); LYMPHOCYTES # (AUTO) 1.3 K/uL (1.0-4.8); LYMPHOCYTES % (AUTO) 35.4 % (22.0-44.0); MEAN CORPUSCULAR HEMOGLOBIN 32.8 pg (26.0-34.0); MEAN CORPUSCULAR HGB CONC 33.8 G/dL (31.0-37.0); MEAN CORPUSCULAR VOLUME 97 fL (80-100); MONOCYTES # (AUTO) 0.5 K/uL (0.1-1.0); MONOCYTES % (AUTO) 12.8 % (2.0-9.0); NEUTROPHILS # (AUTO) 1.7 K/uL (1.8-7.7); NEUTROPHILS % (AUTO) 46.7 % (40.0-70.0); PLATELET COUNT (AUTO) 227 K/uL (150-450)
[2021-11-28 00:58] LABS: ANION GAP 7 mmol/L (8-16); CALCIUM, TOTAL 8.3 mg/dL (8.8-10.5); CARBON DIOXIDE 27 mmol/L (22-29); CHLORIDE 107 mmol/L (98-107); CREATININE 0.86 mg/dL (0.60-1.30); GLUCOSE,RANDOM 94 mg/dL (70-110); POTASSIUM 4.3 mmol/L (3.5-5.1); SODIUM SERUM 141 mmol/L (136-145); UREA NITROGEN, BLOOD 14 mg/dL (7-18)
[2021-11-28 01:00] LABS: GLOMERULAR FILTR. RATE CALC > 60 mL/min (>60)
[2021-11-28 01:05] LABS: ALANINE AMINOTRANSFERASE 13 U/L (12-78); ALBUMIN 3.1 g/dL (3.4-5.0); ALKALINE PHOSPHATASE 89 U/L (46-116); ASPARTATE AMINOTRANSFERASE 19 U/L (15-37); BILIRUBIN,TOTAL 0.2 mg/dL (0.1-1.0); TOTAL PROTEIN, SERUM 6.8 g/dL (6.4-8.2)
[2021-11-28] MEDS ORDERED: LORazepam 1 MG TABLET PO ONE (01:30)
[2021-11-28] MEDS ORDERED: LOPERAMIDE HCL 2 MG CAPSULE PO ONE (01:30)
[2021-11-28 01:42] VITALS: BP 113/70
== END 2021-11-28 01:59 | disposition home or self-care (01) ==
LOC: EMS 23:30
DX: F25.0 Schizoaffective disorder, bipolar type (principal); R19.7 Diarrhea, unspecified; F41.9 Anxiety disorder, unspecified; M19.90 Unspecified osteoarthritis, unspecified site; F31.9 Bipolar disorder, unspecified; M10.9 Gout, unspecified; Z86.2 Personal history of diseases of the blood and blood-forming organs and certain disorders involving the immune mechanism; Z88.0 Allergy status to penicillin; Z98.890 Other specified postprocedural states
CPT/HCPCS: 36415; 80053; 82962; 85025; 99284; G0480

== ENCOUNTER 2021-12-22 21:23 | Emergency (ER) | payer MEDICARE, OTHER ==
[~2021-12-22] VITALS: Ht 160 cm; Wt 63.6 kg
[2021-12-22 21:51] VITALS: BP 109/61
[2021-12-22] MEDS ORDERED: RisperiDONE 1 MG TABLET PO ONE (23:45)
[2021-12-23] MEDS: LORazepam 1 MG TABLET PO ONE ×2 (00:08→00:16)
== END 2021-12-23 04:17 | disposition home or self-care (01) ==
LOC: EMS 21:25
DX: F25.0 Schizoaffective disorder, bipolar type (principal); F41.9 Anxiety disorder, unspecified; M19.90 Unspecified osteoarthritis, unspecified site; F31.9 Bipolar disorder, unspecified; M10.9 Gout, unspecified; Z86.2 Personal history of diseases of the blood and blood-forming organs and certain disorders involving the immune mechanism; Z98.890 Other specified postprocedural states; Z88.0 Allergy status to penicillin; Z88.6 Allergy status to analgesic agent
CPT/HCPCS: 99283

== ENCOUNTER 2022-06-11 11:40 | Emergency (ER) | payer MEDICARE, OTHER ==
[~2022-06-11] VITALS: Ht 160 cm; Wt 59.1 kg
[2022-06-11 11:41] VITALS: BP 109/71
[2022-06-11] MEDS ORDERED: OMEP20TA2 PO (11:51)
[2022-06-11] MEDS ORDERED: RISP1TAB48 PO (11:51)
[2022-06-11] MEDS ORDERED: SODIUM CHLORIDE 0.9% 500 ML IV ONE (13:00)
[2022-06-11] MEDS ORDERED: OMEP20CA13 PO (13:10)
== END 2022-06-11 13:55 | disposition left against medical advice (07) ==
LOC: EMS 11:45
DX: R42 Dizziness and giddiness (principal); F41.9 Anxiety disorder, unspecified; M25.512 Pain in left shoulder; Z53.21 Procedure and treatment not carried out due to patient leaving prior to being seen by health care provider
CPT/HCPCS: 71045; 93005; 36415-L1; 36415-TC

== ENCOUNTER 2022-07-04 13:19 | Emergency (ER) | payer MEDICARE, OTHER ==
[~2022-07-04] VITALS: Ht 162.6 cm; Wt 53.6 kg
[~2022-07-04 13:19] MED LIST changes: +OMEP20CA13 PO; +RISP1TAB48 PO
[2022-07-04 13:20] VITALS: BP 98/58
[2022-07-04] MEDS ORDERED: TraMADol HCL 50 MG TABLET PO ONE (13:45)
[2022-07-04] MEDS ORDERED: IBUPROFEN 600 MG TABLET PO ONE (13:45)
[2022-07-04] MEDS ORDERED: IBUP-1554 PO (13:47)
[2022-07-04] MEDS ORDERED: DIPH25CA53 PO (13:47)
== END 2022-07-04 14:00 | disposition home or self-care (01) ==
LOC: EMS 13:21
DX: M62.838 Other muscle spasm (principal); D64.9 Anemia, unspecified; F41.9 Anxiety disorder, unspecified; F31.9 Bipolar disorder, unspecified; F20.9 Schizophrenia, unspecified; M19.90 Unspecified osteoarthritis, unspecified site; M10.9 Gout, unspecified
CPT/HCPCS: 99283

== ENCOUNTER 2022-07-25 09:26 | Emergency (ER) | payer MEDICARE, OTHER ==
[~2022-07-25] VITALS: Ht 160 cm; Wt 56.8 kg
[~2022-07-25 09:26] MED LIST changes: +DIPH25CA53 PO; +IBUP-1554 PO
[2022-07-25 09:28] VITALS: BP 104/54
[2022-07-25 10:26] LABS: COVID AG,FIA SOURCE NASAL SWAB
[2022-07-25] MEDS ORDERED: BENZ-39 PO (10:35)
[2022-07-25 10:47] LABS: INFLUENZA TYPE A NEGATIVE FOR TYPE A (NEGATIVE); INFLUENZA TYPE B NEGATIVE FOR TYPE B (NEGATIVE)
== END 2022-07-25 10:55 | disposition home or self-care (01) ==
LOC: EMS 09:32
DX: J06.9 Acute upper respiratory infection, unspecified (principal); F41.9 Anxiety disorder, unspecified; F31.9 Bipolar disorder, unspecified; F20.9 Schizophrenia, unspecified; M10.9 Gout, unspecified; D64.9 Anemia, unspecified; M19.90 Unspecified osteoarthritis, unspecified site; Z88.0 Allergy status to penicillin; Z88.6 Allergy status to analgesic agent; Z20.822 Contact with and (suspected) exposure to COVID-19
CPT/HCPCS: 71045; 87804; 99284

== ENCOUNTER 2022-10-31 04:18 | Emergency (ER) | payer MEDICARE, OTHER ==
[~2022-10-31] VITALS: Ht 160 cm; Wt 59.1 kg
[~2022-10-31 04:18] MED LIST changes: +BENZ-39 PO
[2022-10-31 04:20] VITALS: BP 107/53
[2022-10-31] MEDS ORDERED: BACITRACIN 0.9 GM PACKET OINTMENT TP ONE (05:00)
[2022-10-31] MEDS ORDERED: BACI28OI9 TP (05:01)
== END 2022-10-31 06:32 | disposition home or self-care (01) ==
LOC: EMS 04:19
DX: S00.31XA Abrasion of nose, initial encounter (principal); F41.9 Anxiety disorder, unspecified; M19.90 Unspecified osteoarthritis, unspecified site; F31.9 Bipolar disorder, unspecified; F20.9 Schizophrenia, unspecified; Z98.890 Other specified postprocedural states; Z88.0 Allergy status to penicillin; Z88.8 Allergy status to other drugs, medicaments and biological substances; X58.XXXA Exposure to other specified factors, initial encounter; Y93.89 Activity, other specified; Y92.89 Other specified places as the place of occurrence of the external cause; Y99.8 Other external cause status
CPT/HCPCS: 99283

== ENCOUNTER 2022-11-25 15:39 | Emergency (ER) | payer MEDICARE, OTHER ==
[~2022-11-25] VITALS: Ht 160 cm; Wt 56.8 kg
[~2022-11-25 15:39] MED LIST changes: +BACI28OI9 TP
[2022-11-25 15:50] VITALS: BP 113/72; PULSE 68; RESP 18; TEMP 98.2
== END 2022-11-25 16:41 | disposition left against medical advice (07) ==
LOC: EMS 15:45
DX: Z53.21 Procedure and treatment not carried out due to patient leaving prior to being seen by health care provider (principal)
CPT/HCPCS: 99281; Z7502